=== PATIENT | female | born 1950 | race Caucasian/White ===

== ENCOUNTER 2020-05-08 13:17 | Outpatient (REF) | payer MEDICARE, SELFPAY ==
--- NOTE | ~2020-05-08 | MM_ITS ---
EXAMINATION: MM SCREENING DIGITAL BREAST TOMOSYNTHESIS, BILATERAL CLINICAL INFORMATION: Screening. Asymptomatic. Status post right breast lumpectomy. COMPARISON: Mammography: March 27, 2019 and studies dating back to June 06, 2016 TECHNIQUE: Digital breast tomosynthesis is performed in both the craniocaudal and mediolateral oblique views along with computer-aided detection (CAD). Synthesized 2D images are generated from the tomosynthesis. Additional right exaggerated craniocaudal view performed. FINDINGS: The breasts are heterogeneously dense, which may obscure small masses (ACR BI-RADS breast composition Category c). There is postsurgical change seen from previous lumpectomy of the right breast. No new abnormal dominant mass or suspicious grouping of microcalcifications is seen within either the right or left breast. MM/MM tomosynthesis screening BI IMPRESSION: There are no significant changes from prior study. ASSESSMENT: BI-RADS 2: Benign RECOMMENDATION: Routine annual mammography screening. This patient's information was entered into a reminder system with a target due date for their next mammogram.
== END 2020-05-08 13:18 | disposition home or self-care (01) ==
LOC: HO.MAMMO 13:17
PROVIDERS: PCP Internal Medicine Medical Oncology; Visit Provider Family Medicine
DX: Z12.31 Encounter for screening mammogram for malignant neoplasm of breast (principal)
CPT/HCPCS: 77063; 77067

== ENCOUNTER 2020-07-12 13:22 | Outpatient (REF) | payer MEDICARE, SELFPAY ==
--- NOTE | ~2020-07-12 | MR_ITS ---
EXAMINATION: MR BREAST WITHOUT AND WITH CONTRAST, BILATERAL CLINICAL INFORMATION: 69-year-old with prior history of right breast cancer status post lumpectomy with bilateral breast pain. COMPARISON: Correlation to mammogram of 05/08/2020. TECHNIQUE: Imaging was performed with a dedicated breast coil. Prior to the administration of contrast, bilateral axial T1 and bilateral axial T2 weighted sequences were obtained. After the uneventful administration of?6.5 mL of Gadavist, dynamic contrast-enhanced VIBRANT series through the breasts in the axial plane were performed. Subtracted images were performed and reviewed. A delayed sagittal sequence through both breasts was acquired. Additionally, CAD post-processing, including maximum intensity projections, 3-D reconstructions and kinetic analysis, were performed an independent workstation and reviewed by the interpreting radiologist is a portion of this exam. FINDINGS: The patient's fibroglandular tissue demonstrates scattered fibroglandular density. There is minimal background enhancement. LEFT BREAST: There are scattered foci of enhancement demonstrating subthreshold-type kinetics. There are no areas of mass or non-mass enhancements suspicious of malignancy. There are no secondary signs of malignancy. There are no additional findings on T2-weighted imaging or kinetic curve analysis. RIGHT BREAST: There is architectural distortion in the lateral aspect of the breast from prior lumpectomy. There is no associated enhancement. There are no areas of mass or non-mass enhancement suspicious of malignancy. There are no additional findings on T2-weighted imaging or kinetic curve analysis. There is no suspicious internal mammary chain or axillary adenopathy. Limited views of the chest and abdomen are unremarkable. MR/MR breast BI wo/w con IMPRESSION: 1. Post lumpectomy changes in the right breast. 2. No MRI suspicious findings in either breast. ASSESSMENT: LEFT BREAST: BI-RADS 1, Negative. RIGHT BREAST: BI-RADS 2, benign. RECOMMENDATIONS: Routine mammographic imaging as per most recent study. MRI as per high-risk protocol.
== END 2020-07-12 13:23 | disposition home or self-care (01) ==
LOC: HO.MRI 13:22
PROVIDERS: Visit Provider Internal Medicine Medical Oncology
DX: N64.4 Mastodynia (principal); Z85.3 Personal history of malignant neoplasm of breast
CPT/HCPCS: 77049; A9585

== ENCOUNTER 2020-11-09 15:18 | Outpatient (REF) | payer MEDICARE, SELFPAY | END 2020-11-09 15:19 | disposition home or self-care (01) | LOC: HO.LNP 15:18 | PROVIDERS: Visit Provider Physician Assistant Medical | DX: J02.9 Acute pharyngitis, unspecified (principal); Z20.822 Contact with and (suspected) exposure to COVID-19 | CPT/HCPCS: U0003; U0005 ==

== ENCOUNTER 2020-12-26 12:55 | Outpatient (REF) | payer MEDICARE, SELFPAY ==
--- NOTE | ~2020-12-26 | XR_ITS ---
EXAMINATION: XR CERVICAL SPINE CLINICAL INFORMATION: Torticollis. COMPARISON: None TECHNIQUE: 3 views of the cervical spine were obtained. FINDINGS: There is normal cervical lordosis. The vertebral heights and alignment is normal. There is mild loss of C4-C5 disc height. Rest of the disc heights are maintained. There is moderate left C4-C5 and C5-C6 facet joint hypertrophy. No visible acute fracture or dislocation seen. The prevertebral soft tissues are normal. XR/XR cervical spine 3V IMPRESSION: Moderate left C4-C5 and C5-C6 facet joint hypertrophy and arthropathy. No acute fracture or dislocation seen.
== END 2020-12-26 12:56 | disposition home or self-care (01) ==
LOC: HO.HMGCX 12:55
PROVIDERS: PCP Internal Medicine; Visit Provider Internal Medicine
DX: Z13.89 Encounter for screening for other disorder (principal)
CPT/HCPCS: 72040

== ENCOUNTER 2021-02-18 13:44 | Outpatient (REF) | payer MEDICARE, SELFPAY ==
--- NOTE | ~2021-02-18 | MM_ITS ---
EXAMINATION: BONE DENSITOMETRY CLINICAL INDICATION: Asymptomatic menopausal state. COMPARISON: None (current study represents initial baseline exam). TECHNIQUE: Using a [employer] DXA System (software version: 13.1) manufactured by [employer] system master, dual-energy x-ray absorptiometry was performed of the lumbar spine and left hip. The images are of good technical quality. Summary results are attached. FINDINGS: AP SPINE L1-L4: BMD 0.937 g/cm2, Z-score -0.3, T-score -2.0, osteopenia. LEFT FEMUR, NECK: BMD 0.725 g/cm2, Z-score -0.5, T-score -2.2, osteopenia. LEFT FEMUR, TOTAL: BMD 0.815 g/cm2, Z-score 0.0, T-score -1.5, osteopenia. IDENTIFIED RISK FACTORS: Osteoporosis, height loss, low calcium intake, menopause. HISTORY OF FRACTURE: None listed. MEDICATIONS: Vitamin D. MM/XR DEXA axial skeleton IMPRESSION: 1. DIAGNOSIS: Osteopenia based on the lowest T-score value of -2.2 in the femoral neck applying World Health Organization criteria. 2. 10-YEAR FRACTURE RISK PREDICTION, FRAX: Major osteoporotic fracture (clinical spine, forearm, hip or shoulder) 13.0%. Hip fracture 3.2%. 3. Treatment Recommendations: NOF guidelines recommend consideration for treatment in postmenopausal women and men age 50 and older presenting with the following: -A hip or vertebral (clinical or morphometric) fracture. -T-score less than or equal to -2.5 at the femoral neck or spine after appropriate evaluation to exclude secondary causes. -Low bone mass at the hip or spine and a 10-year fracture probability by FRAX of greater than or equal to 3% for hip fracture or greater than or equal to 20% for major osteoporotic fracture based on the [place] adapted WHO algorithm. 4. Other Recommendations: All treatment decisions require clinical judgment and consideration of individual patient factors, including patient preferences, comorbidities, previous drug use, risk factors not captured in the FRAX model (e.g. frailty, falls, vitamin D deficiency, increased bone turnover, interval significant decline in bone density) and possible under or overestimation of fracture risk by FRAX. Additional medical evaluation for secondary cause of low bone mineral density may be appropriate. FUTURE SCAN RECOMMENDATION: People with diagnosed cases of osteoporosis or at high risk for fracture should have regular bone mineral density tests. For patients eligible for Medicare, routine testing is allowed once every 2 years. The testing frequency can be increased to one year for patients who have rapidly progressing disease, those who are receiving or discontinuing medical therapy to restore bone mass, or have additional risk factors.
== END 2021-02-18 13:45 | disposition home or self-care (01) ==
LOC: HO.MAMMO 13:44
PROVIDERS: Visit Provider Internal Medicine
DX: Z13.820 Encounter for screening for osteoporosis (principal); M85.80 Other specified disorders of bone density and structure, unspecified site; M81.0 Age-related osteoporosis without current pathological fracture; Z78.0 Asymptomatic menopausal state; Z79.899 Other long term (current) drug therapy
CPT/HCPCS: 77080

== ENCOUNTER 2021-06-26 10:20 | Outpatient (REF) | payer MEDICARE, SELFPAY ==
[2021-06-26 11:10] LABS: MANUAL DIFF FLAG NO
[2021-06-26 11:30] LABS: Basophils Percent Auto 0.5 % (0-2); Eosinophils Absolute Auto 0.2 X10*3/uL (0.0-0.4); Hematocrit 40.8 % (37.0-47.0); Hemoglobin 13.6 g/dl (12.0-16.0); Imm Gran Abs Auto 0.02 X10*3/uL (0.00-0.03); Imm Gran Pct Auto 0.4 % (0.0-0.4); Lymphocytes Absolute Auto 1.1 X10*3/uL (1.2-4.9); Lymphocytes Percent Auto 19.3 % (20-40); Mean Corpuscular HGB Conc 33.3 g/dl (31.0-35.0); Mean Platelet Volume 9.8 fL (9.4-12.3); Monocytes Absolute Auto 0.5 X10*3/uL (0.1-1.2); Monocytes Percent Auto 8.6 % (2-11); Neutrophils Absolute Auto 3.9 x10*3/uL (2.0-8.3); Neutrophils Percent Auto 68.2 % (45-73); Platelet Count 304 X10*3/uL (160-400); Red Blood Count 4.12 X10*6/uL (4.20-5.50); Red Cell Distribution Width 13.9 % (11.0-16.0); White Blood Count 5.7 X10*3/uL (4.8-10.8)
[2021-06-26 12:12] LABS: TSH reflex Free T4 2.45 uIU/mL (0.32-4.0); Vitamin D 25-OH Total 45.4 ng/mL (>30)
[2021-06-26 12:39] LABS: Alanine Aminotransferase 21 U/L (0-31); Anion Gap 13 (12-20); Aspartate Amino Transferase 20 U/L (5-31); Blood Urea Nitrogen 11 mg/dL (9-16); Calcium 9.8 mg/dL (8.4-10.2); Carbon Dioxide 28 mmol/L (22-29); Chloride 105 mmol/L (96-108); Cholesterol 231 mg/dL; Estimated Glomerular Filt Rate > 60; Glucose Fasting 102 mg/dL (60-99); HDL Cholesterol 78 mg/dL; LDL Cholesterol Calculated 136 mg/dl; Potassium 4.7 mmol/L (3.3-5.1); Sodium 141 mmol/L (135-145); Triglycerides 86 mg/dL
== END 2021-06-26 10:21 | disposition home or self-care (01) ==
LOC: HO.HMGCLDS 10:20
PROVIDERS: PCP Internal Medicine; Visit Provider Internal Medicine
DX: R42 Dizziness and giddiness (principal); N95.9 Unspecified menopausal and perimenopausal disorder; M85.89 Other specified disorders of bone density and structure, multiple sites; Z78.0 Asymptomatic menopausal state; Z83.49 Family history of other endocrine, nutritional and metabolic diseases
CPT/HCPCS: 36415; 80048; 80061; 82306; 84443; 84450; 84460; 85025

== ENCOUNTER 2021-07-28 11:00 | Outpatient (RCR) | payer MEDICARE, SELFPAY ==
[2021-07-25 11:06] VITALS: BP 110/78
--- NOTE | 2021-07-25 12:06 | MHC.PT.EP ---
[facility] [place] Office [place] Office [place] Office [address] Shelby Mcclure [address] [phone] F: [phone] F: [phone] F: [phone] F: [phone] Physical Therapy Plan of Care Date of Evaluation: Date of Surgery: Diagnosis: vertigo Assessment: 70 y/o F referred to PT with vertigo. Dizziness started 3 weeks ago after trialing a new exercise program. Describes dizziness as room-spinning that last < 1 minute which occurs with looking up to put in eye drops, rolling, and getting OOB. She trialed self-Sasha manuever 07/14 which resulted in n/v. Examination shows normal oculomotor, normal static balance strategies, negative VBI test, and (+) for R PC BPPC in Umbarger-Hallpike position. She was treated x 2 Sasha rolls for R PC BPPV with resolution on second roll (no nystagmus or sx). She did have Tumarkin maneuver occur after completion of first Sasha. At end of session, she left without dizziness or balance impairments. Educated pt on CRM, re-calibration time and expectations, and safety. Recommend PT 2x/week for 4 weeks. Frequency and Duration: The patient will be seen 2x/week for 4 weeks Short Term Goals: 1. Pt will be (-) for nystagmus and reports of vertigo in all diagnostic directions with resolution of BPPV in 4 weeks Halfway Goals: 1. Pt to be able to functionally move in all planes without provocation of dizziness and return to PLOF in 4 weeks 2. Pt to be educated on sx and indications to return to therapy when needed in 3. Eliminate BPPV in order to reduce risk of falls Treatment Plan: Modalities to reduce pain, spasms and effusion. Manual therapy to restore motion and function. Therapeutic exercise to improve strength and flexibility. Neuromuscular re-education for posture and balance. Therapeutic activities to return to functional activities of daily living. Electronically signed by: Tanya Rasheed PT Please sign and return to therapist. Thank you for your referral.
--- NOTE | 2021-09-01 15:04 | MHC.PT.DC ---
[facility] [place] Office [place] Office [place] Office [address] Shelby Mcclure [address] [phone] F: [phone] F: [phone] F: [phone] F: [phone] Physical Therapy Discharge Report Diagnosis: vertigo Date of Surgery: Date of Evaluation: 07/25/21 Date of Discharge: 09/01/21 Treatments to Date: 1 Cancellations to Date: 0 No Shows to Date: 0 Discharge Status: Achieved Goals Discharge Summary: Pt was assessed wth [place]-hallpike and Roll Test and all 6 canals were negative for sx and . Educated pt re recurrence and to call and make an appointment if she has a recurrence of sx in 30days. If she does not have a recurrence, we will close chart in 30 days. Pt in agreement. Electronically signed by: Tanya Rasheed PT Please sign and return to therapist. Thank you for your referral.
== END 2021-09-01 15:05 | disposition home or self-care (01) ==
LOC: HO.PTCHIC 11:00
PROVIDERS: PCP Internal Medicine; Visit Provider Internal Medicine
DX: R42 Dizziness and giddiness (principal)
CPT/HCPCS: 95992; 97161

== ENCOUNTER 2021-08-04 13:35 | Outpatient (REF) | payer MEDICARE, SELFPAY ==
--- NOTE | ~2021-08-04 | MM_ITS ---
EXAMINATION: MM SCREENING BREAST TOMOSYNTHESIS, BILATERAL CLINICAL INFORMATION: Screening. Asymptomatic. The lifetime risk of breast cancer based on the Tyrer-Cuzick Model is 4%. COMPARISON: Mammography: 05/08/2020, 03/27/2019, 07/23/2018, 07/09/2017; MR breasts 07/12/2020 TECHNIQUE: Digital breast tomosynthesis is performed in both the craniocaudal and mediolateral oblique views along with computer-aided detection (CAD). Synthesized 2D images are generated from the tomosynthesis. Additional exaggerated right CC view is provided. FINDINGS: There are scattered areas of fibroglandular density (ACR BI-RADS breast composition Category b). Right breast post therapy changes are similar to prior studies with reduced breast size and stable scarring and surgical clips. Neither breast shows interval mass or architectural abnormality or abnormal calcifications. There are no significant changes. MM/MM tomosynthesis screening BI IMPRESSION: No mammographic evidence of malignancy. Post therapy changes right breast. ASSESSMENT: BI-RADS 2: Benign RECOMMENDATION: Routine annual mammography screening. This patient's information was entered into a reminder system with a target due date for their next mammogram.
== END 2021-08-04 13:36 | disposition home or self-care (01) ==
LOC: HO.MAMMO 13:35
PROVIDERS: PCP Internal Medicine; Visit Provider Internal Medicine
DX: Z12.31 Encounter for screening mammogram for malignant neoplasm of breast (principal)
CPT/HCPCS: 77063; 77067

== ENCOUNTER 2022-02-03 10:04 | Outpatient (REF) | payer MEDICARE, SELFPAY ==
--- NOTE | ~2022-02-03 | PE_ITS ---
EXAMINATION: Fluorine-18 FDG PET/CT Scan CLINICAL INDICATION: Subsequent treatment management. Breast cancer status post radiation therapy 2009. PROCEDURE: 54 minutes following the intravenous administration of 15.2 mCi of fluorine 18 FDG, images from the base of the skull to the mid thighs were obtained using a combined PET/CT scanner with CT scan based attenuation correction. No oral contrast was administered. No intravenous contrast was administered. Transverse, coronal, sagittal, and volume reconstruction projections were obtained. The patient's blood glucose as determined by a finger stick, was 91 mg/dl immediately prior to injection. Total CT exam dose-length product 328.70 mGy-cm * These CT images were obtained using dose optimization techniques as appropriate, variously including the following: Automated exposure control * Adjustment of mA and/or kV according to patient size (this includes techniques or standardized protocols for targeted exams where dose is matched to indication/reason for exam; i.e. extremities or head) * Use of iterative reconstruction technique COMPARISON: No previous PET/CT scan or other tomographic imaging studies are available for comparison. Rest chemotherapy is a cyst dated 08/04/2021 is available for comparison. FINDINGS: (Slice numbers described in this report are numbered superiorly to inferiorly with slice #1 in the head) NECK AND VISUALIZED HEAD: No foci of abnormal FDG activity are noted. The distribution of FDG activity is physiological. There is no cervical lymphadenopathy. THORAX: No foci of abnormal FDG activity are present in the chest. There are postsurgical changes in the right breast with some skin retraction laterally at the 9:00 position with no associated abnormal FDG activity. Multiple right axillary metallic surgical clips are in place with no associated abnormal FDG activity. No pulmonary nodules are visualized. Some minimal scarring or atelectasis is present anterolaterally in the right middle lobe with no associated abnormal FDG activity. There is no mediastinal, supraclavicular, or axillary lymphadenopathy. ABDOMEN AND PELVIS: There are no foci of abnormal FDG activity in the abdomen or pelvis. There is mild diffuse FDG activity throughout the gastrointestinal tract. A focus of more intensely increased FDG activity in the splenic flexure of the large bowel appears to be associated with a diverticulum but otherwise no suspicious CT findings are present. This shows SUVmax 5.1, slice 123/267. All the other activity is likely physiological. There is diverticulosis without evidence of diverticulitis. The hollow viscera are otherwise unremarkable. No additional suspicious foci of abnormal FDG activity are present in the abdomen or pelvis. The liver, gallbladder, spleen comment kidneys, adrenal glands and pancreas appear unremarkable. The pelvic organs are unremarkable. There is no retroperitoneal, mesenteric, pelvic or inguinal lymphadenopathy. MUSCULOSKELETAL: There are no foci of abnormal FDG activity in the osseous structures. There are degenerative changes in the spine but no suspicious sclerotic or lytic lesions are present. VASCULAR: Scattered vascular calcifications are present. PET/PET CT fusion skull to thigh IMPRESSION: 1. Postsurgical changes in the right breast and axilla are noted with no associated abnormal FDG activity. 2. FDG avid focus in the splenic flexure of the large bowel is probably physiological, but because of the focal appearance and malignant lesion at this site cannot be entirely ruled out. Correlation with colonoscopy is recommended. 3. There are no additional abnormalities suspicious for recurrent or metastatic malignancy present.
== END 2022-02-03 10:05 | disposition home or self-care (01) ==
LOC: HO.PET 10:04
PROVIDERS: Visit Provider Internal Medicine Medical Oncology
DX: Z13.89 Encounter for screening for other disorder (principal)

== ENCOUNTER 2022-08-10 09:00 | Outpatient (REF) | payer MEDICARE, SELFPAY ==
[2022-08-10 09:17] LABS: MANUAL DIFF FLAG NO
[2022-08-10 09:26] LABS: Basophils Percent Auto 0.8 % (0-2); Eosinophils Absolute Auto 0.1 X10*3/uL (0.0-0.4); Eosinophils Percent Auto 2.4 % (0-4); Hematocrit 41.1 % (37.0-47.0); Hemoglobin 13.9 g/dl (12.0-16.0); Imm Gran Abs Auto 0.03 X10*3/uL (0.00-0.03); Imm Gran Pct Auto 0.6 % (0.0-0.4); Lymphocytes Percent Auto 19.1 % (20-40); Mean Corpuscular HGB Conc 33.8 g/dl (31.0-35.0); Mean Corpuscular Hemoglobin 31.9 pg (27.0-33.0); Mean Corpuscular Volume 94.3 fL (80.0-98.0); Mean Platelet Volume 9.4 fL (9.4-12.3); Monocytes Absolute Auto 0.5 X10*3/uL (0.1-1.2); Monocytes Percent Auto 9.3 % (2-11); Neutrophils Absolute Auto 3.4 x10*3/uL (2.0-8.3); Neutrophils Percent Auto 67.8 % (45-73); Platelet Count 264 X10*3/uL (160-400); Red Blood Count 4.36 X10*6/uL (4.20-5.50)
[2022-08-10 10:04] LABS: Alanine Aminotransferase 13 U/L (0-31); Albumin Level 4.1 g/dL (3.5-5.0); Alkaline Phosphatase 69 U/L (39-117); Anion Gap 11 (12-20); Aspartate Amino Transferase 15 U/L (5-31); Bilirubin Total 0.5 mg/dL (0.0-1.0); Blood Urea Nitrogen 17 mg/dL (9-16); Calcium 9.8 mg/dL (8.4-10.2); Carbon Dioxide 27 mmol/L (22-29); Chloride 105 mmol/L (96-108); Cholesterol 235 mg/dL; Estimated Glomerular Filt Rate > 60; Glucose Fasting 108 mg/dL (60-99); HDL Cholesterol 71 mg/dL; LDL Cholesterol Calculated 151 mg/dl; Potassium 4.5 mmol/L (3.3-5.1); Sodium 138 mmol/L (135-145); Total Protein 6.5 g/dL (6.5-8.0); Triglycerides 66 mg/dL
[2022-08-11 09:44] LABS: CA 27.29 17 U/mL (<38)
== END 2022-08-10 09:01 | disposition home or self-care (01) ==
LOC: HO.LAB 09:00
PROVIDERS: Visit Provider Internal Medicine Medical Oncology
DX: C50.919 Malignant neoplasm of unspecified site of unspecified female breast (principal); H33.309 Unspecified retinal break, unspecified eye; I70.90 Unspecified atherosclerosis; E55.9 Vitamin D deficiency, unspecified; E78.5 Hyperlipidemia, unspecified; M53.9 Dorsopathy, unspecified
CPT/HCPCS: 36415; 80053; 80061; 85025; 86300

== ENCOUNTER → 2022-09-14 13:45 | Outpatient (BNVA) | payer MEDICARE, SELFPAY | PROVIDERS: PCP Internal Medicine; Visit Provider Physician Assistant | DX: R12 Heartburn (principal) | CPT/HCPCS: 99202 ==

== ENCOUNTER 2022-09-18 10:49 | Outpatient (REF) | payer MEDICARE, SELFPAY ==
--- NOTE | ~2022-09-18 | MM_ITS ---
EXAMINATION: MM SCREENING DIGITAL BREAST TOMOSYNTHESIS, BILATERAL CLINICAL INFORMATION: Screening. Asymptomatic. Family history breast cancer, mother. Personal history right breast cancer status post lumpectomy, 2009. COMPARISON: Mammography: 08/04/2021, 05/08/2020, 03/27/2019, 07/23/2018; PET/CT 02/03/2022. TECHNIQUE: Digital breast tomosynthesis is performed in both the craniocaudal and mediolateral oblique views along with computer-aided detection (CAD). Synthesized 2D images are generated from the tomosynthesis. Additional right MLO view is provided. FINDINGS: There are scattered areas of fibroglandular density (ACR BI-RADS breast composition Category b). There are post therapy changes right breast with decreased breast size, stable scarring, and surgical clips. Neither breast shows interval mass or architectural abnormality or abnormal calcifications. There are fine punctate densities overlying both axilla related to the skin on tomography and consistent with deodorant artifact. No significant changes from prior studies. MM/MM tomosynthesis screening BI IMPRESSION: -No mammographic evidence of malignancy. -Post therapy changes right breast, stable. ASSESSMENT: BI-RADS 2: Benign RECOMMENDATION: Routine annual mammography screening. This patient's information was entered into a reminder system with a target due date for their next mammogram.
== END 2022-09-18 10:50 | disposition home or self-care (01) ==
LOC: HO.MAMMO 10:49
PROVIDERS: PCP Internal Medicine; Visit Provider Internal Medicine
DX: Z12.31 Encounter for screening mammogram for malignant neoplasm of breast (principal)
CPT/HCPCS: 77063; 77067

== ENCOUNTER 2022-11-05 12:42 | Outpatient (AMB) | payer MEDICARE, SELFPAY ==
[2022-11-05 13:07] VITALS: BP 110/64; PULSE 67; O2SAT 99; BMI 23.1
--- NOTE | 2022-11-05 13:07 | A.OFFVIS_ITS ---
Intake Vital Signs 11/05/22 13:07 Height 5 ft 6.5 in Weight 145 lb BMI 23.1 BP 110/64 Blood Pressure Location Lt brachial Position Sitting Pulse 67 Pulse Source Pulse Oximeter Pulse Oximetry (%) 99 Oxygen Delivery Method Room Air Intake Visit Reasons: SHEA G0439 Intake Note: Pt is here today for her SWV Allergies No Known Allergies Allergy (Verified 11/05/22 13:12) Medication List - Last Reconciled 11/05/22 by Jackie Cordon MD antiarthritic combination no.2 (glucosamine-chondroitin) mg PO ascorbic acid (vitamin C) (Vitamin C) 1 g PO DAILY calcium cit mal-vit D2-mag ox 200-200-25 mg-unit-mg 2 tabs PO cholecalciferol (vitamin D3) 2,000 units PO DAILY omeprazole 20 mg PO DAILY 30 days timolol maleate 0.5% 1 drp ophthalmic (eye) ONCE HPI SHEA G0439 HPI Details AWV ? 71 year old with history of right breast cancer followed by Oncology, osteopenia sites, glaucoma, chronic GERD, presents for her ? Annual Wellness Visit, initial visit.? She is up-to-date with her screening mammogram, done September 18 with normal findings, had fasting lipid panel and fasting blood sugar check done 08/10/2022 which showed mildly elevated LDL cholesterol at 151 and fasting blood sugar at 1-0 8 mg/dL. She is up-to-date with her screening colonoscopy done in 2020, to be repeated again after 5 years, sees Dr. Nava for her vision check. She is up-to-date with her COVID vaccination, Shingrix, Tdap and gets yearly flu shots, she had Pneumovax 23 given an 2019 and is due for her Prevnar 20. ? Medical / Social History Reviewed? Past Medical History ?Yes . ? [place] of Care / Care Team list updated ?Yes . ? Surgical/Hospitalization History ?Yes . ? Current Medications (including OTC and supplements) ?Yes . ? Family History ?Yes . ? Tobacco Control form ?Yes . ? AUDIT-C (Alcohol use) form ?Yes . ? Illicit drug use in Social History ?Yes . ? Current diagnosis of depression? ?No ? Appropriate PHQ2/PHQ9 completed ?Yes . ? Data entered by ?[facility] and reviewed by provider ? Fall Risk ? Fall History? Have you had any falls with injury in the past year? ?No . ? Have you had two or more falls in the past year? ?No . ? Fall Risk Assessment: ?No falls in the past year . ? HRA filled out by the patient, reviewed by Provider and scanned. ? AWV ? Balance? Romberg ?Yes . ? Tandem walk ?Yes . ? Walk and Turn ?Yes . ? Rise from sit to stand ?Yes . ?Vision? Corrective lens ?Yes ? Vision screen ? Up-to-date, sees Dr. Nava ?Hearing? Whisper test ?pass . ?Written Plan?Completed. See Patient Documents.? [facility] Medical History Cataract (lens) fragments in eye following cataract surgery, left eye Cataract (lens) fragments in eye following cataract surgery, right eye Chronic GERD Ductal carcinoma in situ (DCIS) of right breast Environmental allergies Family history of diabetes mellitus (DM) Family history of thyroid disease Glaucoma Heartburn Intermittent lightheadedness Osteopenia of multiple sites Post-menopause Surgical History History of lumbar surgery Status post right breast lumpectomy Family History Father Substance use disorder Diabetes mellitus Mother Breast CA, Onset Age: 85 Paternal Grandmother Ovarian cancer Social History Housing: House Alcohol intake: current Alcohol intake frequency: a few times a week Alcohol type: wine Patient Tobacco Use Status: Never used Tobacco e-Cigarette/Vaping Use: Never Used Current occupational status: other 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 Cognitive needs: No Hearing needs: No Vision needs: No Questionnaire Medicare Wellness Checkup [age] What gender do you identify with?: female During the past 4 weeks, how much have you been bothered by emotional problems such as feeling anxious, depressed, irritable, sad or downhearted, and blue?: not at all During the past 4 weeks, has your physical & emotional health limited your social activities with family, friends, neighbors, or groups?: not at all During the past 4 weeks, how much bodily pain have you generally had?: no pain During the past 4 weeks, was someone available to help you if you needed & wanted help?: yes, as much as I wanted During the past 4 weeks, what was the hardest physical activity you could do for at least 2 minutes?: heavy Can you get to places out of walking distance without help? (For eg., can you travel alone on buses, taxis or drive your car?): Yes Can you go shopping for groceries or clothes without someone's help?: Yes Can you prepare your own meals?: Yes Can you do your housework without help?: Yes Because of any health problems, do you need the help of another person with your personal care needs such as eating, bathing, dressing or getting around the house?: No Can you handle your own money without help?: Yes During the past 4 weeks, how would you rate your health in general?: very good During the past 4 weeks how have things been going for you?: very well; could hardly better Are you having difficulties driving your car?: no Do you always fasten your seat belt when you are in a car?: yes, usually During past 4 weeks, have you been bothered by the following: never: Falling or dizzy when standing up, Sexual problems?, Trouble eating well?, Teeth or denture problems?, Problems using the telephone? and Tiredness or fatigue? Have you fallen 2 or more times in the past year?: No Are you afraid of falling?: No Are you a smoker?: no During the past 4 weeks, how many drinks of wine, beer, or other alcoholic beverages did you have?: 6-9 drinks per week Do you exercise for about 20 minutes 3 or more times a week?: yes, all the time Have you been given information to help with the following?: no: Hazards in your house that might hurt you? and no: Keeping track of your medications? How often do you have trouble taking medicines the way you have been told to take them?: I always take medicine as prescribed How confident are you that you can control & manage most of your health problems?: very confident What is your race?: White Mini Mental State Exam (MMSE) Orientation What is the (year) (season) (date) (day) (month)?: year (2022), season (Summer), date (11/05/2022), day () and month (October) Where are we (state) (county) (town or city) (hospital) (floor)?: state ([place]), formerly [facility], [facility] ([place]), town or city ([place]) and hospital/clinic ([facility]) Score Score: 9 Activity of Daily Living Bathing - sponge bath, tub bath or shower: receives no assistance (gets in/out by self, if usual bathing means Dressing - getting clothes from closets & drawers, including inner/outer garments & fasteners.: gets clothes & gets completely dressed without help Toileting - going to the 'toilet room' for urine/bowel elimination & cleaning self/arranging clothes: goes to toilet room, cleans self, arranges clothes without help Transfer: moves in & out of bed and chair without help (may use support object) Continence: controls urination/bowel movements completely by self Feeding: feeds self without help Total Score: 0 Information obtained from: patient Using telephone: independent Traveling: independent Shopping: independent Preparing meals: independent Housework: independent Taking medicine: independent Managing money: independent PHQ-9 Over the last 2 weeks, how often have you been bothered by any of the following problems? 1. Little interest or pleasure in doing things: not at all 2. Feeling down, depressed, or hopeless: not at all 3. Trouble falling or staying asleep, or sleeping too much: not at all 4. Feeling tired or having little energy: not at all 5. Poor appetite or overeating: not at all 6. Feeling bad about yourself - or that you are a failure or have let yourself or your family down: not at all 7. Trouble concentrating on things, such as reading the newspaper or watching television: not at all 8. Moving or speaking so slowly that other people could have noticed. Or the opposite - being so fidgety or restless that you have been moving around a lot more than usual: not at all 9. Thoughts that you would be better off or of hurting yourself in some way: not at all Total score: 0 Depression Screening Interpretation: Negative 06016 - PHQ-9 Billing: Yes Source: Developed by Drs. Jed Clancy, Isis Marinelli, Daniel Garzon and colleagues, with an educational nicole from [employer]. Physical Exam Vital Signs: Last Vital Signs Pulse 67 11/05/22 13:07 BP 110/64 11/05/22 13:07 Pulse Ox 99 11/05/22 13:07 Oxygen Delivery Method Room Air 11/05/22 13:07 BMI result Body Mass Index 23.1 Assessment & Plan Assessment & Plan (1) Encounter for initial annual wellness visit (AWV) in Medicare patient: Code(s): Z00.00 - Encounter for general adult medical examination without abnormal fin dings Plan: Medical wellness checklist reviewed, discussed and updated, copy given to patient. Reminded to get her Prevnar 20, which is unavailable at the clinic at this time, may get it at the pharmacy (2) Osteopenia of multiple sites: Code(s): M85.89 - Other specified disorders of bone density and structure, multiple sites Plan: Continue with regular weight-bearing exercise, taking adequate calcium in dietary sources and vitamin-D 3 supplements. Repeat another bone density scan (3) Heartburn: Code(s): R12 - Heartburn Plan: Currently on omeprazole 20 mg once a day (4) Glaucoma: Code(s): H40.9 - Unspecified glaucoma Plan: Currently followed by Ophthalmology (5) Environmental allergies: Code(s): Z91.09 - Other allergy status, other than to drugs and biological substances Plan: On [id number] levocetirizine taken as needed for nasal congestion (6) Advanced directives, counseling/discussion: Code(s): Z71.89 - Other specified counseling Plan: Initiated the conversation about Advanced Directives. Advanced Directives help patients prepare for current and future decisions about their medical treatment and place of care. Discussed with patient that it is a process where a patients current condition and prognosis are reviewed, their wishes for information regarding their illness are elicited, and likely medical dilemmas are presented and options discussed. MOLST form completed today, patient will be taking the healthcare proxy form home with her to be discussed with her assigned healthcare proxy, will provide a copy as soon as completed. These forms can be amended as needed, reviewed yearly and make changes as needed Orders: Orders XR DEXA axial skeleton 11/05/22 M85.89 - Other specified disorders of bone density and structure, multiple sites Quality Reporting (2019) Depression/Bipolar (159/160/161/177) PHQ-9: Total score: 0 Coding Level of Care Code Medicare First (G0438) Diagnoses Encounter for initial annual wellness visit (AWV) in Medicare patient Z00.00 Osteopenia of multiple sites M85.89 Heartburn R12 Glaucoma H40.9 Environmental allergies Z91.09 Advanced directives, counseling/discussion Z71.89 CPT Codes Advance Care Planning - Time spent: 16-45 minutes ([id number]) Advance Care Planning Advance Care Planning discussion: Completed/Scanned Date of discussion: 11/05/22 Who was present: Patient Forms completed: Health Care Proxy (Patient states that she would like to discuss this 1st with her chosen healthcare proxy and will complete, and provide us a copy once done) and YOHANA Time spent: 16-45 minutes Actual minutes spent: 16
== END 2022-11-05 14:08 | disposition home or self-care (01) ==
PROVIDERS: PCP Internal Medicine; Visit Provider Internal Medicine
DX: Z00.00 Encounter for general adult medical examination without abnormal findings (principal); M85.89 Other specified disorders of bone density and structure, multiple sites; R12 Heartburn; Z91.09 Other allergy status, other than to drugs and biological substances; H40.9 Unspecified glaucoma; Z71.89 Other specified counseling
CPT/HCPCS: 99497; G0438

== ENCOUNTER 2022-12-01 11:51 | Day surgery (SDC) | payer MEDICARE, SELFPAY ==
[2022-11-26 12:54] VITALS: BMI 23.4
--- NOTE | 2022-11-27 13:29 | P.CONAN_ITS ---
Documented by User: Lucretia Stahl NP 11/27/22 13:31 HPI - Anesthesia Eval Consult details Narrative: 71yo F for Upper Endoscopy PMFSH Active Problems Active Problems: All Active Problems (Updated 08/14/22 @ 15:30 by Melani Whitley [facility]) Chronic GERD (Acute) Ingrown toenail of left foot (Acute) Intermittent lightheadedness (Acute) Osteopenia of multiple sites (Acute) Family history of thyroid disease (Acute) Family history of diabetes mellitus (DM) (Acute) Post-menopause (Acute) Heartburn (Acute) Glaucoma (Acute) Environmental allergies (Acute) Past Medical History Medical History Cataract (lens) fragments in eye following cataract surgery, left eye Cataract (lens) fragments in eye following cataract surgery, right eye Chronic GERD Ductal carcinoma in situ (DCIS) of right breast Environmental allergies Family history of diabetes mellitus (DM) Family history of thyroid disease Glaucoma Heartburn Intermittent lightheadedness Osteopenia of multiple sites Post-menopause Family History Family History Father Substance use disorder Diabetes mellitus Mother Breast CA, Onset Age: 85 Paternal Grandmother Ovarian cancer Surgical History Surgical History History of lumbar surgery Status post right breast lumpectomy Social History Social History Housing: House Alcohol intake: current Alcohol intake frequency: a few times a week Alcohol type: wine Patient Tobacco Use Status: Never used Tobacco e-Cigarette/Vaping Use: Never Used Are you DNR?: No Advance Directives: No Advance Directives Information Provided: Yes Nutrition Risks: No Nutritional Risk Current occupational status: other 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 Cognitive needs: No Hearing needs: No Vision needs: No Meds Allergies Allergy/AdvReac Type Severity Reaction Status Date / Time No Known Allergies Allergy Verified 12/01/22 12:08 Home Medications Medication Instructions Recorded Confirmed Last Taken Type timolol maleate 0.5 % eye drops 1 drp ophthalmic (eye) ONCE 12/26/20 12/01/22 Unknown History antiarthritic combination no.2 900 mg PO 06/26/21 09/14/22 Unknown History mg tablet (glucosamine-chondroitin) cholecalciferol (vitamin D3) 25 2,000 unit PO DAILY 06/26/21 12/01/22 Unknown History mcg (1,000 unit) capsule ascorbic acid (vitamin C) 1,000 mg 1 g PO DAILY 06/27/21 12/01/22 Unknown History tablet (Vitamin C) calcium citrate mal.-vit 2 tab PO 06/27/21 09/14/22 Unknown History D2-magnesium ox 200 mg-200 unit-25 mg tablet Exam Exam Date and Time: November 27, 2022 1329 Height,Weight and Vital Signs: Height 5 ft 6 in Weight 65.771 kg Pertinent Lab Results Pertinent Lab Results: Laboratory Tests 08/10/22 08/10/22 09:16 09:16 WBC 5.0 Hgb 13.9 Hct 41.1 Plt Count 264 Sodium 138 Potassium 4.5 Chloride 105 Carbon Dioxide 27 BUN 17 H Creatinine 0.84 Assessment and Plan Assessment Anesthesia Assessment: Chart Reviewed Documented by User: Letty Larsen MD 12/01/22 13:10 PMFSH Active Problems Active Problems: All Active Problems (Updated 12/01/22 @ 12:30 by Letty Larsen MD) Chronic GERD (Acute) Ingrown toenail of left foot (Acute) Intermittent lightheadedness (Acute) Osteopenia of multiple sites (Acute) Heartburn (Acute) Glaucoma (Acute) Environmental allergies (Acute) Past Medical History Medical History Cataract (lens) fragments in eye following cataract surgery, left eye Cataract (lens) fragments in eye following cataract surgery, right eye Chronic GERD Ductal carcinoma in situ (DCIS) of right breast Environmental allergies Family history of diabetes mellitus (DM) Family history of thyroid disease Glaucoma Heartburn Intermittent lightheadedness Osteopenia of multiple sites Post-menopause Family History Family History Father Substance use disorder Diabetes mellitus Mother Breast CA, Onset Age: 85 Paternal Grandmother Ovarian cancer Family history of problems with anesthesia: No Surgical History Surgical History History of lumbar surgery Status post right breast lumpectomy History of Problems with Anesthesia: Yes (PONV with breast lumpectomy) Social History Social History Housing: House Alcohol intake: current Alcohol intake frequency: a few times a week Alcohol type: wine Patient Tobacco Use Status: Never used Tobacco e-Cigarette/Vaping Use: Never Used Are you DNR?: No Advance Directives: No Advance Directives Information Provided: Yes Nutrition Risks: No Nutritional Risk Current occupational status: other 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 Cognitive needs: No Hearing needs: No Vision needs: No Meds Allergies Allergy/AdvReac Type Severity Reaction Status Date / Time No Known Allergies Allergy Verified 12/01/22 12:08 Home Medications Medication Instructions Recorded Confirmed Last Taken Type timolol maleate 0.5 % eye drops 1 drp ophthalmic (eye) ONCE 12/26/20 12/01/22 Unknown History antiarthritic combination no.2 900 mg PO 06/26/21 09/14/22 Unknown History mg tablet (glucosamine-chondroitin) cholecalciferol (vitamin D3) 25 2,000 unit PO DAILY 06/26/21 12/01/22 Unknown History mcg (1,000 unit) capsule ascorbic acid (vitamin C) 1,000 mg 1 g PO DAILY 06/27/21 12/01/22 Unknown History tablet (Vitamin C) calcium citrate mal.-vit 2 tab PO 06/27/21 09/14/22 Unknown History D2-magnesium ox 200 mg-200 unit-25 mg tablet Exam Height,Weight and Vital Signs: Height 5 ft 6 in Weight 65.771 kg Vital Signs Temp Pulse Resp BP Pulse Ox O2 Del Method 12/01/22 12:21 97.9 F 68 18 145/83 H 98 Room Air Airway Mallampati Class: I TM Dist: >3cm Neck ROM: Full Loose/Missing/Broken Teeth: No (Denies broken, loose, missing teeth) Heart: RRR Lungs: CTAB Assessment and Plan Assessment Anesthesia Assessment: Anesthesia Plan Discussed Final Anesthetic Review Family History of Problems with Anesthesia: No History of Problems with Anesthesia: Yes (PONV with breast lumpectomy) NPO: Yes ASA Class: II Final Preanesthetic Review: No Changes in Pt Med Stat, Meds/Allgs Chart Reviewed, Consent Obtained/Reviewed and Anes Risks/Benef Reviewed Patient Risk: Low Procedure Risk: Low Assessment/Block/Sedation in SS: Assess/Block/Sedation-SS Anesthetic Plan Anesthetic Plan: MAC: Disposition: Standard PACU
[2022-12-01] MEDS: Lactated Ringers 1,000 ML 100 ML IVCONT (12:11)
[2022-12-01 12:21] VITALS: BP 145/83; PULSE 68; RESP 18; TEMP 36.6; O2SAT 98
--- NOTE | 2022-12-01 12:22 | MHC.SHP ---
Pre-Procedural Eval Section A Date of Service: 12/01/22 Section B Chief Complaint: reflux disease Relevant Family History (Specify if Yes): No Relevant Social History: None Present Medications: see Short Stay Collaborative assessment Medical History: Significant History (Cataract (lens) fragments in eye following cataract surgery, left eye Cataract (lens) fragments in eye following cataract surgery, right eye Chronic GERD Ductal carcinoma in situ (DCIS) of right breast Environmental allergies Family history of diabetes mellitus (DM) Family history of thyroid disease) History of Previous Operations: Relevant previous surgery/procedure and date(s) (History of lumbar surgery Status post right breast lumpectomy) Allergies: Allergies Allergy/AdvReac Type Severity Reaction Status Date / Time No Known Allergies Allergy Verified 12/01/22 12:08 Review of Systems Sugical H&P ROS: Negative: Constitution, Cardiovascular, Respiratory, Neurological, Psychiatric, Hem-Onc, Allergic/Immunologic, Gastrointestinal, Genitourinary, Musculoskeletal, Integumentary, Endocrine and Eyes/Ears/Nose/Throat Exam Surgical H&P Exam: Normal: HEENT, Normal: Heart, Normal: Lungs, Normal: Extremities, Normal: Abdomen, Normal: Skin and Normal: Neurological Plan Diagnosis/Plan: Unchanged I have reviewed the history and physical and performed a pertinent physical examination on my patient. No changes have occurred unless specified. Time Spent With Patient Time: Total time managing care of this patient today ____ minutes.
--- NOTE | 2022-12-01 13:08 | W.PM.OPN ---
Operative Note Operative Note Date of Service: 12/01/22 Narrative: Procedure Description: EGD Indication: GERD Anesthesia: MAC FLEXIBLE TRANSORAL UPPER GASTROINTESTINAL ENDOSCOPY UPPER ENDOSCOPY Consent: Indications for the procedure and potential complications of bleeding, perforation, reaction to medications and missed diagnosis were discussed with the patient and informed consent was obtained. Instrument: Olympus GIF H 190 J mid size upper endoscope Monitoring: Vital signs and clinical assessment, continuous EKG monitoring, Pulse oximetry, Carbon Dioxide monitoring and blood pressure monitoring were done throughout the procedure. Procedure: The patient was placed in the left lateral decubitis position and pre-procedure medications were administered and a bite block was placed. The endoscope was inserted into the mouth and advanced under direct vision to the third part of duodenum. A careful inspection was made as the upper endoscope was withdrawn including a retroflexed examination of the proximal stomach; Findings and interventions are described below. Findings: Larynx:normal Esophagus: GE junction at 35 cm, diaphragm hiatus at 37cm, few tongues and islands of salmon pink tissue consistent with short segment barretts, bx taken. 2 cm sliding hiatal hernia noted. Stomach: Patchy streaky gastric erythema. Biopsies were obtained. Grade 2 flap valve on retroflexed examination of the cardia. 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
[2022-12-01 13:55] VITALS: BP 119/54; PULSE 72; RESP 16; TEMP 36.1; O2SAT 98
[2022-12-01 14:10] VITALS: BP 145/68; PULSE 64; RESP 16; TEMP 36.1; O2SAT 99
== END 2022-12-01 14:45 | disposition home or self-care (01) ==
PROVIDERS: PCP Internal Medicine; Visit Provider Internal Medicine Gastroenterology
PROC: 0DJ08ZZ Inspection of Upper Intestinal Tract, Via Natural or Artificial Opening Endoscopic (ICD-10-PCS; CPT 43235; principal; 2022-12-01 13:30)
DX: K29.60 Other gastritis without bleeding (principal); K44.9 Diaphragmatic hernia without obstruction or gangrene; K21.9 Gastro-esophageal reflux disease without esophagitis; Z79.899 Other long term (current) drug therapy
CPT/HCPCS: 43239; 88305; 88342

== ENCOUNTER → 2022-12-01 11:51 | Outpatient (BNV) | payer MEDICARE, SELFPAY | PROVIDERS: PCP Internal Medicine; Visit Provider Internal Medicine Gastroenterology | DX: K29.70 Gastritis, unspecified, without bleeding (principal); K44.9 Diaphragmatic hernia without obstruction or gangrene | CPT/HCPCS: 43239 ==

== ENCOUNTER 2022-12-16 09:29 | Outpatient (AMB) | payer MEDICARE, SELFPAY ==
--- NOTE | 2022-12-16 09:36 | A.OFFVIS_ITS ---
Intake Vital Signs 12/16/22 09:41 Height 5 ft 6 in Weight 141 lb 4 oz BMI 22.8 BP 101/49 L Blood Pressure Location Lt brachial Position Sitting Pulse 71 Intake Visit Reasons: S/p egd- [facility] Intake Note: Patient follow up for EGD results. Patient cc: sore throat on and off. Denies any other GI issues. 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 Cuturel with good response Last colonoscopy 3-4 years ago at another facility No complaints of abdominal pain, nausea, vomiting, hematemesis, hematochezia, fever or chills PFSH Medical History Cataract (lens) fragments in eye following cataract surgery, right eye Cataract (lens) fragments in eye following cataract surgery, left eye Chronic GERD Intermittent lightheadedness Osteopenia of multiple sites Family history of thyroid disease Family history of diabetes mellitus (DM) Post-menopause Heartburn Glaucoma Environmental allergies Ductal carcinoma in situ (DCIS) of right breast Surgical History Hx of colonoscopy History of lumbar surgery Status post right breast lumpectomy Family History Father Substance use disorder Diabetes mellitus Mother Breast CA, Onset Age: 85 Paternal Grandmother Ovarian cancer Social History Housing: House Alcohol intake: current Alcohol intake frequency: a few times a week Alcohol type: wine Patient Tobacco Use Status: Never used Tobacco e-Cigarette/Vaping Use: Never Used Current occupational status: other 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 Cognitive needs: No Hearing needs: No Vision needs: No Physical Exam Vital Signs: Last Vital Signs Pulse 71 12/16/22 09:41 BP 101/49 L 12/16/22 09:41 BMI result Body Mass Index 22.8 Const General: cooperative, healthy appearing, comfortable and well groomed Orientation/consciousness: patient oriented x3 Limitations: no limitations Eyes Sclerae: sclerae normal Resp Effort & Inspection: normal respiratory effort and able to speak in complete sentences Auscultation: clear to auscultation bilaterally, no rales, no rhonchi and no wheezes Cardio Rate: regular rate Rhythm: regular rhythm Heart sounds: S1 normal heart sound present and S2 normal heart sound present GI Palpation (GI): Soft to palpation and nontender Auscultation: normal bowel sounds Skin General skin exam: no rashes or lesions noted Neuro General: patient oriented x3 Extrem General: Yes full ROM Psych Appearance: grossly normal and well kempt Mental Status: mental status grossly normal Speech and movement: Normal speech and movement present and Clear speech present Affect: normal affect Attitude: cooperative Thought process: Normal thought process present Insight: Good insight present (Psych) Results Reviewed Results Reviewed: mpression/Findings: 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 Stomach, biopsy: Antral-type and oxyntic mucosa with moderate chronic inactive inflammation; no Helicobacter organisms seen. B. GE junction biopsy: - Cardiofundic-type mucosa with moderate chronic inactive inflammation; no intestinal metaplasia seen. - Active esophagitis (maximum eosinophil count 3 per high powered field). C. Esophagus, distal, biopsy: Squamous epithelium within normal limits; no inflammation seen. D. Esophagus, proximal, biopsy: Squamous epithelium within normal limits; no inflammation seen. Clinical History Pre-Op Dx: Reflux Post-Op Dx: Possible Walton's, hiatal hernia, gastritis Microscopic Description A-D. Microscopic sections reviewed. Immunostain for H. pylori is non-reactive (A). Material Received A. Bx stomach B. Bx GE junction (r/o Walton's esophagus) C. Bx distal esophagus D. Bx proximal esophagus Gross Description Received in 4 parts. Part A: Received in formalin labeled ?bx stomach? are 3 glistening, semitranslucent, soft, mckeon irregular tissue fragments each measuring 0.2 cm in greatest dimension which are submitted in toto in a single cassette labeled A. Part B: Received in formalin labeled ?bx GE junction? are 3 glistening, semit ranslucent, soft, hyperemic, mckeon-pink irregular tissue fragments ranging from 0.15 to 0.3 cm in greatest dimension which are submitted in toto in a single cassette labeled B. Part C: Received in formalin labeled ?bx distal esophagus? are 4 glistening, semitranslucent, pale, dickens- Patient: Carlita Hernandez Age/Sex: 71/F MR#: [id number] Page 1 of 2 PET/PET CT fusion skull to thigh IMPRESSION: 1. Postsurgical changes in the right breast and axilla are noted with no associated abnormal FDG activity. 2. FDG avid focus in the splenic flexure of the large bowel is probably physiological, but because of the focal appearance and malignant lesion at this site cannot be entirely ruled out. Correlation with colonoscopy is recommended. 3. There are no additional abnormalities suspicious for recurrent or metastatic malignancy present. Assessment & Plan Assessment & Plan (1) Abnormal PET scan of colon: Code(s): R94.8 - Abnormal results of function studies of other organs and systems Plan: Diagnostic colonoscopy Plan DX-Colonoscopy Dr. 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 238 grams PO ONCE 1 day PRN 238 grams 0RF laxative effect bisacodyl (Dulcolax (bisacodyl)) Take 4 tablets by mouth at 12:00pm the day before your procedure. 20 mg (4 x 5 mg) PO ONCE 1 day 4 tabs 0RF colonoscopy prep Z12.11 - Encounter for screening for malignant neoplasm of colon Patient Instructions: Very pleasant 71-year-old female follows up after recent EGD reviewed procedure report, pathology as well recommendations She has no GI complaints. Acid reflux well controlled Reviewed PET scan results-as well as recommendations colonoscopy to correlate with findings Will schedule diagnostic colonoscopy with Dr. Sterling, MiraLax Gatorade prep. Encouraged to call with any questions or concerns. We appreciate the opportunity assist in care this pleasant patient Coding Level of Care Code Est Pt Level 3 (93558) Diagnoses Abnormal PET scan of colon R94.8 Time Spent (min) 30
[2022-12-16 09:41] VITALS: BP 101/49; PULSE 71; BMI 22.8
== END 2022-12-16 10:34 | disposition home or self-care (01) ==
PROVIDERS: PCP Internal Medicine; Visit Provider Physician Assistant
DX: R94.8 Abnormal results of function studies of other organs and systems (principal)
CPT/HCPCS: 99213

== ENCOUNTER → 2022-12-16 09:29 | Outpatient (BNVA) | payer MEDICARE, SELFPAY | PROVIDERS: PCP Internal Medicine; Visit Provider Physician Assistant | DX: R94.8 Abnormal results of function studies of other organs and systems (principal) | CPT/HCPCS: 99212 ==

== ENCOUNTER 2023-02-03 12:44 | Day surgery (SDC) | payer MEDICARE, SELFPAY ==
[2023-02-01 14:28] VITALS: BMI 22.8
--- NOTE | 2023-02-02 12:31 | P.CONAN_ITS ---
Documented by User: Lucretia Stahl NP 02/02/23 12:32 HPI - Anesthesia Eval Consult details Narrative: 72yo F for Colonoscopy PMFSH Active Problems Active Problems: All Active Problems (Updated 12/16/22 @ 10:07 by Jaimee Powell PA-C) Abnormal PET scan of colon (Acute) Chronic GERD (Acute) Ingrown toenail of left foot (Acute) Intermittent lightheadedness (Acute) Osteopenia of multiple sites (Acute) Family history of thyroid disease (Acute) Family history of diabetes mellitus (DM) (Acute) Post-menopause (Acute) Heartburn (Acute) Glaucoma (Acute) Environmental allergies (Acute) Past Medical History Medical History Cataract (lens) fragments in eye following cataract surgery, right eye Cataract (lens) fragments in eye following cataract surgery, left eye Chronic GERD Intermittent lightheadedness Osteopenia of multiple sites Family history of thyroid disease Family history of diabetes mellitus (DM) Post-menopause Heartburn Glaucoma Environmental allergies Ductal carcinoma in situ (DCIS) of right breast Family History Family History Father Substance use disorder Diabetes mellitus Mother Breast CA, Onset Age: 85 Paternal Grandmother Ovarian cancer Family history of problems with anesthesia: No Surgical History Surgical History History of esophagogastroduodenoscopy (EGD) Hx of colonoscopy History of lumbar surgery Status post right breast lumpectomy History of Problems with Anesthesia: Yes (PONV with breast lumpectomy) Social History Housing: House Alcohol intake: current Alcohol intake frequency: 0-2 drinks per day Alcohol type: wine Patient Tobacco Use Status: Never used Tobacco e-Cigarette/Vaping Use: Never Used Current occupational status: other 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 Cognitive needs: No Hearing needs: No Vision needs: No Meds Allergies Allergy/AdvReac Type Severity Reaction Status Date / Time No Known Allergies Allergy Verified 02/11/23 11:32 Home Medications Medication Instructions Recorded Confirmed Last Taken Type timolol maleate 0.5 % eye drops 1 drp ophthalmic (eye) ONCE 12/26/20 12/01/22 Unknown History antiarthritic combination no.2 900 mg PO 06/26/21 09/14/22 Unknown History mg tablet (glucosamine-chondroitin) cholecalciferol (vitamin D3) 25 2,000 unit PO DAILY 06/26/21 12/01/22 Unknown History mcg (1,000 unit) capsule ascorbic acid (vitamin C) 1,000 mg 1 g PO DAILY 06/27/21 12/01/22 Unknown History tablet (Vitamin C) calcium citrate mal.-vit 2 tab PO 06/27/21 09/14/22 Unknown History D2-magnesium ox 200 mg-200 unit-25 mg tablet Exam Exam Date and Time: February 02, 2023 1231 Height,Weight and Vital Signs: Height 5 ft 6 in Weight 64.07 kg Pertinent Lab Results Pertinent Lab Results: Laboratory Tests 08/10/22 09:16 WBC 5.0 Hgb 13.9 Hct 41.1 Plt Count 264 Sodium 138 Potassium 4.5 Chloride 105 Carbon Dioxide 27 BUN 17 H Creatinine 0.84 Assessment and Plan Assessment Anesthesia Assessment: Chart Reviewed Final Anesthetic Review Family History of Problems with Anesthesia: No History of Problems with Anesthesia: Yes (PONV with breast lumpectomy) Documented by User: Ryan Vega MD 02/18/23 17:50 [facility] Past Medical History Medical History Cataract (lens) fragments in eye following cataract surgery, right eye Cataract (lens) fragments in eye following cataract surgery, left eye Chronic GERD Intermittent lightheadedness Osteopenia of multiple sites Family history of thyroid disease Family history of diabetes mellitus (DM) Post-menopause Heartburn Glaucoma Environmental allergies Ductal carcinoma in situ (DCIS) of right breast Functional capacity: independent ambulation Family History Family History Father Substance use disorder Diabetes mellitus Mother Breast CA, Onset Age: 85 Paternal Grandmother Ovarian cancer Surgical History Surgical History History of esophagogastroduodenoscopy (EGD) Hx of colonoscopy History of lumbar surgery Status post right breast lumpectomy Social History Housing: House Alcohol intake: current Alcohol intake frequency: 0-2 drinks per day Alcohol type: wine Patient Tobacco Use Status: Never used Tobacco e-Cigarette/Vaping Use: Never Used Current occupational status: other 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 Cognitive needs: No Hearing needs: No Vision needs: No Meds Allergies Allergy/AdvReac Type Severity Reaction Status Date / Time No Known Allergies Allergy Verified 02/11/23 11:32 Home Medications Medication Instructions Recorded Confirmed Last Taken Type timolol maleate 0.5 % eye drops 1 drp ophthalmic (eye) ONCE 12/26/20 12/01/22 Unknown History antiarthritic combination no.2 900 mg PO 06/26/21 09/14/22 Unknown History mg tablet (glucosamine-chondroitin) cholecalciferol (vitamin D3) 25 2,000 unit PO DAILY 06/26/21 12/01/22 Unknown History mcg (1,000 unit) capsule ascorbic acid (vitamin C) 1,000 mg 1 g PO DAILY 06/27/21 12/01/22 Unknown History tablet (Vitamin C) calcium citrate mal.-vit 2 tab PO 06/27/21 09/14/22 Unknown History D2-magnesium ox 200 mg-200 unit-25 mg tablet Exam Airway Mallampati Class: III Loose/Missing/Broken Teeth: Yes Assessment and Plan Assessment Anesthesia Assessment: Anesthesia Plan Discussed Final Anesthetic Review NPO: Yes ASA Class: III Final Preanesthetic Review: Meds/Allgs Chart Reviewed, Consent Obtained/Reviewed and Anes Risks/Benef Reviewed Patient Risk: Intermediate Procedure Risk: Intermediate Anesthetic Plan Anesthetic Plan: MAC: and Agree w/ Assess. and Plan Disposition: Standard PACU
[2023-02-03 12:56] VITALS: BMI 22.4
--- NOTE | 2023-02-03 13:18 | MHC.SHP ---
Pre-Procedural Eval Section A Date of Service: 02/03/23 Section B Chief Complaint: Abnormal results of function studies of other orga Relevant Family History (Specify if Yes): No Relevant Social History: None Present Medications: see Short Stay Collaborative assessment Medical History: Significant History (Cataract (lens) fragments in eye following cataract surgery, right eye Cataract (lens) fragments in eye following cataract surgery, left eye Chronic GERD Intermittent lightheadedness Osteopenia of multiple sites Family history of thyroid disease Family history of diabetes mellitus (DM) Post-menopaus) History of Previous Operations: Relevant previous surgery/procedure and date(s) (lumpectomy, EGD) Allergies: Allergies Allergy/AdvReac Type Severity Reaction Status Date / Time No Known Allergies Allergy Verified 02/03/23 13:03 Review of Systems Sugical H&P ROS: Negative: Constitution, Cardiovascular, Respiratory, Neurological, Psychiatric, Hem-Onc, Allergic/Immunologic, Gastrointestinal, Genitourinary, Musculoskeletal, Integumentary, Endocrine and Eyes/Ears/Nose/Throat Exam Surgical H&P Exam: Normal: HEENT, Normal: Heart, Normal: Lungs, Normal: Extremities, Normal: Abdomen, Normal: Skin and Normal: Neurological Plan Diagnosis/Plan: Unchanged I have reviewed the history and physical and performed a pertinent physical examination on my patient. No changes have occurred unless specified. Time Spent With Patient Time: Total time managing care of this patient today ____ minutes.
[2023-02-03 13:29] VITALS: BP 120/59; PULSE 67; RESP 16; TEMP 35.8; O2SAT 97
[2023-02-03] MEDS: Lactated Ringers 1,000 ML 100 ML IVCONT (13:31)
--- NOTE | 2023-02-03 14:39 | P.OP_ITS ---
Operative Note Operative Note Date of Service: 02/03/23 Narrative: Operative Information Procedure Description: Colonoscopy Indication: abn PET scan of colon Anesthesia: MAC COLONOSCOPY Instrument: Olympus variable stiffness pediatric scope 190L Colonoscopy Monitoring: Vital signs and clinical assessment, continuous EKG monitoring, Pulse oximetry, Carbon Dioxide monitoring and blood pressure monitoring were done throughout the procedure. Colon withdrawal time was 7 minutes. Procedure: The patient was placed in the left lateral decubitis position and pre-procedure medications were administered. After a digital rectal examination of the ano-rectum, the video colonoscope was inserted into the rectum and advanced through the colon to the cecum/TI. The colonoscope was slowly withdrawn in a retrograde panoramic fashion and the colon mucosa was carefully examined including a retroflexed view of the rectum. Findings and interventions are described below. Procedure Difficulty: easy Findings: Terminal Ileum-normal Cecum:normal Ascending Colon: normal Transverse Colon -normal Descending Colon:normal Sigmoid Colon: mild diverticulosis noted Rectum: Retroflexion with small internal hemorrhoids, grade I Anorectum - normal Colon preparation: [place] Bowel Preparation Scale Right colon; 2 Transverse colon: 3 Left colon; 3 (0 = Unprepared colon segment with mucosa not seen due to solid stool that cannot be cleared. 1 = Portion of mucosa of the colon segment seen, but other areas of the colon segment not well seen due to staining, residual stool and/or opaque liquid. 2 = Minor amount of residual staining, small fragments of stool and/or opaque liquid, but mucosa of colon segment seen well. 3 = Entire mucosa of colon segment seen well with no residual staining, small fragments of stool or opaque liquid) Impression and Post Procedure Diagnosis: internal hemorrhoids diverticular disease Plan: High fiber diet leaflet Avoid straining at stool, epsom salts and sitz bath, anusol supps or cream Repeat Colonoscopy in 10 years or earlier if clinically indicated no masses or abnormal tissue noted Above findings were reviewed with the patient and relevant handouts were provided if indicated.
[2023-02-03 14:45] VITALS: BP 123/56; PULSE 67; RESP 16; TEMP 36.9; O2SAT 98
[2023-02-03 15:00] VITALS: BP 132/75; PULSE 60; RESP 16; TEMP 36.1; O2SAT 99
== END 2023-02-03 15:27 | disposition home or self-care (01) ==
PROVIDERS: PCP Internal Medicine; Visit Provider Internal Medicine Gastroenterology
PROC: 0DJD8ZZ Inspection of Lower Intestinal Tract, Via Natural or Artificial Opening Endoscopic (ICD-10-PCS; CPT 45378; principal; 2023-02-03 15:20)
DX: R93.3 Abnormal findings on diagnostic imaging of other parts of digestive tract (principal); K57.30 Diverticulosis of large intestine without perforation or abscess without bleeding; K64.0 First degree hemorrhoids; K21.9 Gastro-esophageal reflux disease without esophagitis; M85.89 Other specified disorders of bone density and structure, multiple sites; R42 Dizziness and giddiness; H40.9 Unspecified glaucoma; Z79.899 Other long term (current) drug therapy; Z85.3 Personal history of malignant neoplasm of breast; Z98.890 Other specified postprocedural states
CPT/HCPCS: 45378

== ENCOUNTER → 2023-02-03 12:44 | Outpatient (BNV) | payer MEDICARE, SELFPAY | PROVIDERS: PCP Internal Medicine; Visit Provider Internal Medicine Gastroenterology | DX: R93.3 Abnormal findings on diagnostic imaging of other parts of digestive tract (principal); K57.30 Diverticulosis of large intestine without perforation or abscess without bleeding; K64.0 First degree hemorrhoids | CPT/HCPCS: G0121 ==

== ENCOUNTER 2023-02-11 11:26 | Outpatient (AMB) | payer MEDICARE, SELFPAY ==
[2023-02-11 11:30] VITALS: BP 123/64; PULSE 66; BMI 23.6
--- NOTE | 2023-02-11 11:30 | MHC.OFFVIS ---
Intake Vital Signs 02/11/23 11:30 Height 5 ft 6 in Weight 145 lb 15.136 oz BMI 23.6 BP 123/64 Blood Pressure Location Lt brachial Position Sitting Pulse 66 Pulse Source Pulse Oximeter Intake Visit Reasons: s/p colon [facility] Intake Note: Pt presents to the office today for a s/p colonoscopy. Pt states she is feeling well and denies any GI issues at this time. Allergies No Known Allergies Allergy (Verified 02/11/23 11:32) HPI HPI Comments History of Present Illness Details A very pleasant 72 y/o female F/U after colonoscopy- due to abnormal PET- she was extremely anxious about results She has no GI complaints She is very active she walks several miles a day Appetite is good Bowels are normal Reviewed procedure report, pathology in recommendations-in she is very happy about results No nausea, vomiting, hematemesis, hematochezia fever chills PFSH Medical History Cataract (lens) fragments in eye following cataract surgery, right eye Cataract (lens) fragments in eye following cataract surgery, left eye Chronic GERD Intermittent lightheadedness Osteopenia of multiple sites Family history of thyroid disease Family history of diabetes mellitus (DM) Post-menopause Heartburn Glaucoma Environmental allergies Ductal carcinoma in situ (DCIS) of right breast Surgical History History of esophagogastroduodenoscopy (EGD) Hx of colonoscopy History of lumbar surgery Status post right breast lumpectomy Family History Father Substance use disorder Diabetes mellitus Mother Breast CA, Onset Age: 85 Paternal Grandmother Ovarian cancer Social History Housing: House Alcohol intake: current Alcohol intake frequency: 0-2 drinks per day Alcohol type: wine Patient Tobacco Use Status: Never used Tobacco e-Cigarette/Vaping Use: Never Used Current occupational status: other 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 Cognitive needs: No Hearing needs: No Vision needs: No Review of Systems Const All systems reviewed & are unremarkable except as noted in HPI and below Physical Exam Vital Signs: Last Vital Signs Pulse 66 02/11/23 11:30 BP 123/64 02/11/23 11:30 BMI result Body Mass Index 23.6 Const General: cooperative, healthy appearing, comfortable, no acute distress, well developed and well groomed Orientation/consciousness: patient oriented x3 Limitations: no limitations Eyes Sclerae: sclerae normal Resp Effort & Inspection: normal respiratory effort and able to speak in complete sentences Neuro General: patient oriented x3 Extrem General: Yes full ROM Psych Appearance: grossly normal and well kempt Mental Status: mental status grossly normal Speech and movement: Normal speech and movement present and Clear speech present Affect: normal affect Attitude: cooperative Thought process: Normal thought process present Thought content: Normal thought content present Insight: Good insight present (Psych) Results Reviewed Results Reviewed: Impression and Post Procedure Diagnosis: internal hemorrhoids diverticular disease Plan: High fiber diet leaflet Avoid straining at stool, epsom salts and sitz bath, anusol supps or cream Repeat Colonoscopy in 10 years or earlier if clinically indicated no masses or abnormal tissue noted Assessment & Plan Assessment & Plan (1) Abnormal PET scan of colon: Comment: pet scan, recommend colonoscopy -procedure report reviewed-very happy about results Code(s): R94.8 - Abnormal results of function studies of other organs and systems Plan: Repeat colonoscopy 10 years sooner if indicated (2) Chronic GERD: Code(s): K21.9 - Gastro-esophageal reflux disease without esophagitis Plan: Continue omeprazole 20 mg daily avoid culprits Patient Instructions: Repeat asymptomatic colonoscopy 10 years continue omeprazole 20 mg daily avoid culprits I can see that she says she recommends locking and locking Coding Level of Care Code Est Pt Level 3 (47437) Diagnoses Abnormal PET scan of colon R94.8 Chronic GERD K21.9 Time Spent (min) 25
== END 2023-02-11 12:07 | disposition home or self-care (01) ==
PROVIDERS: PCP Internal Medicine; Visit Provider Physician Assistant
DX: R94.8 Abnormal results of function studies of other organs and systems (principal); K21.9 Gastro-esophageal reflux disease without esophagitis
CPT/HCPCS: 99213

== ENCOUNTER → 2023-02-11 11:26 | Outpatient (BNVA) | payer MEDICARE, SELFPAY | PROVIDERS: PCP Internal Medicine; Visit Provider Physician Assistant | DX: K21.9 Gastro-esophageal reflux disease without esophagitis (principal); R94.8 Abnormal results of function studies of other organs and systems | CPT/HCPCS: 99212 ==

== ENCOUNTER 2023-08-09 09:49 | Outpatient (REF) | payer MEDICARE, SELFPAY ==
[2023-08-09 10:15] LABS: MANUAL DIFF FLAG NO
[2023-08-09 10:45] LABS: Basophils Absolute Auto 0.1 X10*3/uL (0.0-0.2); Basophils Percent Auto 0.9 % (0-2); Eosinophils Absolute Auto 0.1 X10*3/uL (0.0-0.4); Eosinophils Percent Auto 2.4 % (0-4); Hematocrit 39.8 % (37.0-47.0); Hemoglobin 13.6 g/dl (12.0-16.0); Imm Gran Abs Auto 0.03 X10*3/uL (0.00-0.03); Imm Gran Pct Auto 0.5 % (0.0-0.4); Lymphocytes Absolute Auto 1.2 X10*3/uL (1.2-4.9); Lymphocytes Percent Auto 21.9 % (20-40); Mean Corpuscular HGB Conc 34.2 g/dl (31.0-35.0); Mean Corpuscular Hemoglobin 32.5 pg (27.0-33.0); Mean Platelet Volume 9.6 fL (9.4-12.3); Monocytes Absolute Auto 0.5 X10*3/uL (0.1-1.2); Monocytes Percent Auto 8.2 % (2-11); Neutrophils Absolute Auto 3.6 x10*3/uL (2.0-8.3); Neutrophils Percent Auto 66.1 % (45-73); Platelet Count 304 X10*3/uL (160-400); Red Blood Count 4.19 X10*6/uL (4.20-5.50); Red Cell Distribution Width 13.3 % (11.0-16.0); White Blood Count 5.5 X10*3/uL (4.8-10.8)
[2023-08-09 11:40] LABS: Alanine Aminotransferase 15 U/L (0-31); Alkaline Phosphatase 63 U/L (39-117); Anion Gap 16 (12-20); Aspartate Amino Transferase 17 U/L (5-31); Bilirubin Total 0.4 mg/dL (0.0-1.0); Blood Urea Nitrogen 12 mg/dL (9-16); Calcium 9.5 mg/dL (8.4-10.2); Carbon Dioxide 24 mmol/L (22-29); Chloride 104 mmol/L (96-108); Cholesterol 230 mg/dL (<200); Estimated Glomerular Filt Rate > 60; Glucose Fasting 104 mg/dL (60-99); HDL Cholesterol 70 mg/dL (>40); LDL Cholesterol Calculated 148 mg/dL (<100); Potassium 4.3 mmol/L (3.3-5.1); Sodium 140 mmol/L (135-145); Total Protein 6.9 g/dL (6.5-8.0); Triglycerides 62 mg/dL (<150)
[2023-08-09 11:58] LABS: Vitamin D 25-OH Total 36.4 ng/mL (>30)
== END 2023-08-09 09:50 | disposition home or self-care (01) ==
LOC: HO.LAB 09:49
PROVIDERS: PCP Internal Medicine Medical Oncology; Visit Provider Internal Medicine Medical Oncology
DX: C50.919 Malignant neoplasm of unspecified site of unspecified female breast (principal); I70.90 Unspecified atherosclerosis; E55.9 Vitamin D deficiency, unspecified; E78.5 Hyperlipidemia, unspecified
CPT/HCPCS: 36415; 80053; 80061; 82306; 85025

== ENCOUNTER 2023-10-06 13:26 | Outpatient (REF) | payer MEDICARE, SELFPAY ==
--- NOTE | ~2023-10-06 | MM_ITS ---
EXAMINATION: BONE DENSITOMETRY CLINICAL INDICATION: Other specified disorders of bone density and structure, multiple sites. COMPARISON: Baseline BD dated 02/18/2021. TECHNIQUE: Using a [employer] DXA System (software version: 13.1) manufactured by [employer], dual-energy x-ray absorptiometry was performed of the lumbar spine and left hip. The images are of good technical quality. Summary results are attached. FINDINGS: LEFT FEMUR, NECK: Current: BMD 0.758 g/cm2, Z-score -0.1, T-score -2.0, osteopenia. Baseline: BMD 0.725 g/cm2. LEFT FEMUR, TOTAL: Current: BMD 0.834 g/cm2, Z-score 0.3, T-score -1.4, osteopenia, 2.3% increase from baseline (<5% change is not significant). Baseline: BMD 0.815 g/cm2. AP SPINE L1-L4: Current: BMD 0.983 g/cm2, Z-score 0.1, T-score -1.6, osteopenia, 4.9% increase from baseline (<5% change is not significant). Baseline: BMD 0.937 g/cm2. IDENTIFIED RISK FACTORS: Height loss, menopause. HISTORY OF FRACTURE: None listed. MEDICATIONS: Calcium, ERT/SERMS, vitamin D. MM/XR DEXA axial skeleton IMPRESSION: 1. DIAGNOSIS: Osteopenia based on the lowest T-score value of -2.0 in the femoral neck applying World Health Organization criteria. 2. 10-YEAR FRACTURE RISK PREDICTION, FRAX: Major osteoporotic fracture (clinical spine, forearm, hip or shoulder) 12.3%. Hip fracture 3.1%. 3. Treatment Recommendations: NOF guidelines recommend consideration for treatment in postmenopausal women and men age 50 and older presenting with the following: -A hip or vertebral (clinical or morphometric) fracture. -T-score less than or equal to -2.5 at the femoral neck or spine after appropriate evaluation to exclude secondary causes. -Low bone mass at the hip or spine and a 10-year fracture probability by FRAX of greater than or equal to 3% for hip fracture or greater than or equal to 20% for major osteoporotic fracture based on the [place] adapted WHO algorithm. 4. Other Recommendations: All treatment decisions require clinical judgment and consideration of individual patient factors, including patient preferences, comorbidities, previous drug use, risk factors not captured in the FRAX model (e.g. frailty, falls, vitamin D deficiency, increased bone turnover, interval significant decline in bone density) and possible under or overestimation of fracture risk by FRAX. Additional medical evaluation for secondary cause of low bone mineral density may be appropriate. FUTURE SCAN RECOMMENDATION: People with diagnosed cases of osteoporosis or at high risk for fracture should have regular bone mineral density tests. For patients eligible for Medicare, routine testing is allowed once every 2 years. The testing frequency can be increased to one year for patients who have rapidly progressing disease, those who are receiving or discontinuing medical therapy to restore bone mass, or have additional risk factors.
--- NOTE | ~2023-10-06 | MM_ITS ---
EXAMINATION: MM SCREENING DIGITAL BREAST TOMOSYNTHESIS, BILATERAL CLINICAL INFORMATION: Screening. Asymptomatic. The patient has a personal history of right breast cancer. COMPARISON: Mammography: This study is compared with prior exams dating back to TECHNIQUE: Digital breast tomosynthesis is performed in both the craniocaudal and mediolateral oblique views along with computer-aided detection (CAD). Synthesized 2D images are generated from the tomosynthesis. FINDINGS: There are scattered areas of fibroglandular density (ACR BI-RADS breast composition Category b). There are no significant masses, abnormal calcifications, or other abnormalities. There are postsurgical changes in the upper outer quadrant of the right breast and right axilla. MM/MM tomosynthesis screening BI IMPRESSION: No mammographic evidence of malignancy. ASSESSMENT: BI-RADS BI-RADS 2 - Benign Findings RECOMMENDATION: Routine annual mammography screening. 1 year F/U This examination should not preclude the clinical evaluation of a suspicious palpable abnormality. This patient's information was entered into a reminder system with a target due date for their next mammogram.
== END 2023-10-06 13:27 | disposition home or self-care (01) ==
LOC: HO.MAMMO 13:26
PROVIDERS: Absent Provider Internal Medicine Medical Oncology; PCP Internal Medicine; Visit Provider Internal Medicine
DX: Z12.31 Encounter for screening mammogram for malignant neoplasm of breast (principal); Z13.820 Encounter for screening for osteoporosis; M85.89 Other specified disorders of bone density and structure, multiple sites; Z78.0 Asymptomatic menopausal state
CPT/HCPCS: 77063; 77067; 77080

== ENCOUNTER → 2023-10-06 13:45 | Outpatient (BNV) | payer MEDICARE, SELFPAY | PROVIDERS: Absent Provider Internal Medicine Medical Oncology; PCP Internal Medicine; Visit Provider Radiology Diagnostic Radiology | DX: Z12.31 Encounter for screening mammogram for malignant neoplasm of breast (principal) | CPT/HCPCS: 77063; 77067 ==

== ENCOUNTER 2024-01-12 14:45 | Outpatient (AMB) | payer MEDICARE, SELFPAY ==
--- NOTE | 2024-01-12 14:48 | A.OFFVIS_ITS ---
Intake Vital Signs 01/12/24 14:49 Height 5 ft 6 in Weight 147 lb BMI 23.7 BP 120/72 Blood Pressure Location Lt brachial Position Sitting Pulse 70 Pulse Source Pulse Oximeter Pulse Oximetry (%) 96 Oxygen Delivery Method Room Air Intake Visit Reasons: medicare annual wellness - transfer Intake Note: Patient is here for an Annual Wellness Visit. Pole Tester Required: No Allergies No Known Allergies Allergy (Verified 01/12/24 14:49) Medication List - Last Reconciled 01/12/24 by Lori Kathleen PA-C antiarthritic combination no.2 (glucosamine-chondroitin) mg PO ascorbic acid (vitamin C) (Vitamin C) 1 g PO DAILY calcium cit mal-vit D2-mag ox 200-200-25 mg-unit-mg 2 tabs PO cholecalciferol (vitamin D3) 2,000 units PO DAILY omeprazole 20 mg PO DAILY timolol maleate 0.5% 1 drp ophthalmic (eye) ONCE HPI medicare annual wellness - transfer HPI Details 73-year-old female with history of right breast cancer followed by Oncology, osteopenia, glaucoma, chronic GERD last seen by Dr. Cordon coming in for annual wellness exam. In review of the notes, patient was seen by Oncology 08/10/2023 after recent negative PET scan and negative mammo advised to follow up in 6 months. Mammogram: 09/2023 BI-RADS 2 follow up in 1 year Eye exam: scheduled for 01/2024 Colonoscopy: 01/2023 repeat in 10 years. Bone density: 09/2023 osteopenia Patient mentioned she has had pain in the right side of the groin for the last 2 months which feels like a deep pain. The pain has not changed in the last 2 months denies any abnormal vaginal bleeding or discharge and denies any other symptoms. Otherwise has no acute concerns today. [facility] Medical History Cataract (lens) fragments in eye following cataract surgery, right eye Cataract (lens) fragments in eye following cataract surgery, left eye Chronic GERD Intermittent lightheadedness Osteopenia of multiple sites Family history of thyroid disease Family history of diabetes mellitus (DM) Post-menopause Heartburn Glaucoma Environmental allergies Ductal carcinoma in situ (DCIS) of right breast Surgical History History of esophagogastroduodenoscopy (EGD) Hx of colonoscopy History of lumbar surgery Status post right breast lumpectomy Family History Father Substance use disorder Diabetes mellitus Mother Breast CA, Onset Age: 85 Paternal Grandmother Ovarian cancer Social History Housing: House Alcohol intake: current Alcohol intake frequency: 0-2 drinks per day Alcohol type: wine Patient Tobacco Use Status: Never used Tobacco e-Cigarette/Vaping Use: Never Used Current occupational status: other 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 Cognitive needs: No Hearing needs: No Vision needs: No Questionnaire Medicare Wellness Checkup What [age] What gender do you identify with?: female During the past 4 weeks, how much have you been bothered by emotional problems such as feeling anxious, depressed, irritable, sad or downhearted, and blue?: not at all During the past 4 weeks, has your physical & emotional health limited your social activities with family, friends, neighbors, or groups?: not at all During the past 4 weeks, how much bodily pain have you generally had?: very mild pain During the past 4 weeks, was someone available to help you if you needed & wanted help?: no, not at all During the past 4 weeks, what was the hardest physical activity you could do for at least 2 minutes?: moderate Can you get to places out of walking distance without help? (For eg., can you travel alone on buses, taxis or drive your car?): Yes Can you go shopping for groceries or clothes without someone's help?: Yes Can you prepare your own meals?: Yes Can you do your housework without help?: Yes Because of any health problems, do you need the help of another person with your personal care needs such as eating, bathing, dressing or getting around the house?: No Can you handle your own money without help?: Yes During the past 4 weeks, how would you rate your health in general?: excellent During the past 4 weeks how have things been going for you?: very well; could hardly better Are you having difficulties driving your car?: no Do you always fasten your seat belt when you are in a car?: yes, usually During past 4 weeks, have you been bothered by the following: never: Falling or dizzy when standing up, Sexual problems?, Trouble eating well?, Teeth or denture problems?, Problems using the telephone? and Tiredness or fatigue? Have you fallen 2 or more times in the past year?: No Are you afraid of falling?: No Are you a smoker?: no During the past 4 weeks, how many drinks of wine, beer, or other alcoholic beverages did you have?: 6-9 drinks per week Do you exercise for about 20 minutes 3 or more times a week?: yes, all the time Have you been given information to help with the following?: no: Hazards in your house that might hurt you? and no: Keeping track of your medications? How often do you have trouble taking medicines the way you have been told to take them?: I always take medicine as prescribed How confident are you that you can control & manage most of your health problems?: very confident What is your race?: White PHQ-9 Over the last 2 weeks, how often have you been bothered by any of the following problems? 1. Little interest or pleasure in doing things: not at all 2. Feeling down, depressed, or hopeless: not at all 3. Trouble falling or staying asleep, or sleeping too much: not at all 4. Feeling tired or having little energy: not at all 5. Poor appetite or overeating: not at all 6. Feeling bad about yourself - or that you are a failure or have let yourself or your family down: not at all 7. Trouble concentrating on things, such as reading the newspaper or watching television: not at all 8. Moving or speaking so slowly that other people could have noticed. Or the opposite - being so fidgety or restless that you have been moving around a lot more than usual: not at all 9. Thoughts that you would be better off or of hurting yourself in some way: not at all Total score: 0 Depression Screening Interpretation: Negative Depression Screening Done: Yes 33590 - PHQ-9 Billing: Yes Source: Developed by Drs. Jed Clancy, Isis Marinelli, Daniel Garzon and colleagues, with an educational nicole from [employer]. Review of Systems Const Denies body aches, Denies fatigue, Denies fever(s), Denies frequent falls, Denies headache(s) and Denies weakness Eyes Reports no additional complaints and Denies change in vision ENT Denies dysphagia, Denies dizziness, Denies facial pain, Denies headache(s), Denies nasal congestion and Denies odynophagia Card Denies chest pain, Denies syncope, Denies irregular heart rhythm, Denies leg edema, Denies lightheadedness and Denies dyspnea Resp Denies cough and Denies dyspnea GI Denies constipation, Denies dysphagia, Denies dyspepsia, Denies diarrhea, Denies nausea, Denies odynophagia and Denies vomiting Denies urinary frequency, Denies dysuria, Denies urinary hesitancy and Denies urinary urgency Musc Details: right sided groin discomfort Denies back pain and Denies myalgias Skin/Breast Reports system reviewed and no additional complaints, except as documented Neuro Denies dizziness, Denies syncope, Denies frequent falls, Denies headache(s) and Denies weakness Psych Reports no additional complaints Endo Denies fatigue Physical Exam Vital Signs: Last Vital Signs Pulse 70 01/12/24 14:49 BP 120/72 01/12/24 14:49 Pulse Ox 96 01/12/24 14:49 Oxygen Delivery Method Room Air 01/12/24 14:49 BMI result Body Mass Index 23.7 Const General: cooperative, healthy appearing, comfortable and no acute distress Orientation/consciousness: patient oriented x3 HEENT Head: Yes normocephalic Ears: hearing grossly normal bilaterally General nose exam: Normal external nose present Eyes General: appearance normal, both eyes and all related structures Conjunctivae: conjunctivae normal Neck Neck: Yes full ROM and Yes no lymphadenopathy Resp Effort & Inspection: normal respiratory effort Auscultation: clear to auscultation bilaterally, no crackles, no rales, no rhonchi and no wheezes Cardio Rate: regular rate Rhythm: regular rhythm Skin General skin exam: no rashes or lesions noted Neuro General: patient oriented x3 Cognition (Neuro): normal cognition Gait exam (Neuro): Normal gait present Extrem General: Yes normal to inspection, Yes full ROM and No edema Psych Affect: normal affect Attitude: cooperative Insight: Good insight present (Psych) Judgement: Good judgement present (Psych) Assessment & Plan Assessment & Plan (1) Abnormal PET scan of colon: Comment: pet scan, recommend colonoscopy -procedure report reviewed-very happy about results Code(s): R94.8 - Abnormal results of function studies of other organs and systems Plan: Colonoscopy was completed 01/2023 advised to repeat in 10 years. (2) Osteopenia of multiple sites: Code(s): M85.89 - Other specified disorders of bone density and structure, multiple sites Plan: Continue on calcium and vitamin-D supplementation. (3) Glaucoma: Code(s): H40.9 - Unspecified glaucoma Plan: Patient regularly follows for annual eye exams and is using timolol drops daily. (4) Chronic GERD: Code(s): K21.9 - Gastro-esophageal reflux disease without esophagitis Plan: Avoid trigger foods such as citrus, tomato products, soda, caffeine, spicy foods and other foods that may be irritating to your stomach. Avoid laying flat 3-4 hours after eating and elevate the head of the bed 30 degrees to prevent acid from moving into the esophagus. Continue on omeprazole 20 mg. (5) Medicare annual wellness visit, subsequent: Code(s): Z00.00 - Encounter for general adult medical examination without abnormal findings Plan: Patient is up-to-date on all recommended routine screenings and vaccinations for her age. Comorbidities are well managed at this time advised to follow up in 1 year or sooner if new problems arise. [place] of care was reviewed with patient patient was provided with a written screening schedule. MOLST forms are previously completed and scanned in patient's chart. (6) Groin pain: Code(s): R10.30 - Lower abdominal pain, unspecified Plan: right sided groin pain present for about 2 months most likely muscular in nature. Offered x-ray for further evaluation of hip and pelvis which was deferred at this time. Advised patient to continue to monitor symptoms and reach out to the office if she would like further workup. She did request referral to Gynecology for annual exam which was placed today. Plan This note was constructed using voice recognition software. While every effort has been made to ensure accuracy and nail artist, still areas may have been included sometimes these areas may affect the content or meeting of the given symptoms. Total time spent caring for the patient today was 30 minutes. This includes time spent before the visit reviewing the chart, time spent during the visit, and time spent after the visit and documentation. 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
[2024-01-12 14:49] VITALS: BP 120/72; PULSE 70; O2SAT 96; BMI 23.7
== END 2024-01-12 15:29 | disposition home or self-care (01) ==
PROVIDERS: PCP Internal Medicine
DX: Z00.00 Encounter for general adult medical examination without abnormal findings (principal); R94.8 Abnormal results of function studies of other organs and systems; M85.89 Other specified disorders of bone density and structure, multiple sites; H40.9 Unspecified glaucoma; K21.9 Gastro-esophageal reflux disease without esophagitis; R10.30 Lower abdominal pain, unspecified

== ENCOUNTER → 2024-01-12 14:45 | Outpatient (BNVA) | payer MEDICARE, SELFPAY | PROVIDERS: PCP Internal Medicine ==

== ENCOUNTER 2024-05-08 10:16 | Outpatient (AMB) | payer MEDICARE, SELFPAY ==
--- NOTE | 2024-05-08 10:23 | MHC.PC.OV ---
Vital Signs 05/08/24 10:25 Height 5 ft 6.54 in Weight 146 lb 2 oz BMI 23.2 BP 120/72 Blood Pressure Location Lt brachial Position Sitting Pulse 71 Pulse Source Pulse Oximeter Temp 97.1 F Temp Source Skin Pulse Oximetry (%) 98 Oxygen Delivery Method Room Air Intake Visit Reasons: rt hip pain Intake Note: Patient is here to follow up on right hip pain, Right knee, right toes fungus. Possible uti Molding Manager Required: No Manager Investigations: Not Required per policy Accompanied by: Self / Same As Patient Allergies No Known Allergies Allergy (Verified 05/08/24 10:24) Medication List - Last Reconciled 05/08/24 by Lori Kathleen PA-C antiarthritic combination no.2 (glucosamine-chondroitin) mg PO ascorbic acid (vitamin C) (Vitamin C) 1 g PO DAILY calcium cit mal-vit D2-mag ox 200-200-25 mg-unit-mg 2 tabs PO cholecalciferol (vitamin D3) 2,000 units PO DAILY omeprazole 20 mg PO DAILY timolol maleate 0.5% 1 drp ophthalmic (eye) ONCE Tobacco use date assessed: 05/08/24 Fall risk assessment: No Falls in past year Last assessed Fall Risk: 05/08/24 Dental Screening Dental Screen Date: 05/08/24 Did you have a dental visit in the last 12 months?: Yes Did you have a dental problem in the last 6 months where you did not have access to dental care?: No Was dental information given to patient?: Patient has dentist HPI rt hip pain HPI Details 73-year-old female with history of right breast cancer followed by Oncology, osteopenia, glaucoma, chronic GERD last seen 12/2023 coming in for acute problem. Patient presents today with several concerns. presenting with onychomycosis, urinary tract symptoms, and musculoskeletal pain in the right hip and knee. She has been using topical treatment for onychomycosis by her boilers and pressure vessels inspector for two months but has declined oral treatment due to liver monitoring requirements. She reported urinary symptoms without significant findings of discharge or foul-smelling urine, with a history of positive UTI tests. Musculoskeletal symptoms include right hip and knee pain noted over three months, initially evaluated by an oncologist, with more recent pain in the groin region. She is requesting an MRI for the hip and knee pain. She states she does yoga every day and this is where the significant amount of pain comes in. Also reported travel-related nausea concerns, planning to travel and requiring nausea management. [facility] Medical History Cataract (lens) fragments in eye following cataract surgery, right eye Cataract (lens) fragments in eye following cataract surgery, left eye Chronic GERD Intermittent lightheadedness Osteopenia of multiple sites Family history of thyroid disease Family history of diabetes mellitus (DM) Post-menopause Heartburn Glaucoma Environmental allergies Ductal carcinoma in situ (DCIS) of right breast Surgical History History of dental surgery History of esophagogastroduodenoscopy (EGD) Hx of colonoscopy History of lumbar surgery Status post right breast lumpectomy Family History Father Substance use disorder Diabetes mellitus Mother Breast CA, Onset Age: 85 Paternal Grandmother Ovarian cancer Social History Housing: House Alcohol intake: current Alcohol intake frequency: 0-2 drinks per day Alcohol type: wine Patient Tobacco Use Status: Never used Tobacco e-Cigarette/Vaping Use: Never Used Second Hand Smoke Exposure: No service: No Current occupational status: other 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 1. Little interest or pleasure in doing things: not at all 2. Feeling down, depressed, or hopeless: not at all 3. Trouble falling or staying asleep, or sleeping too much: not at all 4. Feeling tired or having little energy: not at all 5. Poor appetite or overeating: not at all 6. Feeling bad about yourself - or that you are a failure or have let yourself or your family down: not at all 7. Trouble concentrating on things, such as reading the newspaper or watching television: not at all 8. Moving or speaking so slowly that other people could have noticed. Or the opposite - being so fidgety or restless that you have been moving around a lot more than usual: not at all 9. Thoughts that you would be better off or of hurting yourself in some way: not at all Total score: 0 Depression Screening Interpretation: Negative Depression Screening Done: Yes Source: Developed by Drs. Jed Clancy, Isis Marinelli, Daniel Garzon and colleagues, with an educational nicole from [employer]. Thrive Questionnaire Date Thrive assessed: 05/08/24 I am a: Patient What is your living situation today?: I have a steady place to live Within the past 12 months, did the food you bought not last and you didn't have the money to get more?: Never true Within the past 12 months, did you worry whether your food would run out before you got money to buy more?: Never true Do you have trouble paying for medicines?: No Do you have trouble getting transportation to medical appointments?: No Do you have trouble paying your heating and electricity bill?: No Do you have trouble taking care of your child, family member or friend?: No Do you have trouble with day-to-day activities such as bathing, preparing meals, shopping, managing finances, etc.?: No Are you currently unemployed and looking for a job?: No Are you interested in more education?: No Please select the resources that you would like help with: None Currently or been in a relationship where the following occur: No concerns reported THRIVE Score: 0 AUDIT C Alcohol Use Questionnaire (AUDIT-C) 1. How often do you have a drink containing alcohol?: Monthly or less 2. How many drinks containing alcohol do you have on a typical day when you are drinking?: 1 or 2 3. How often do you have six or more drinks on one occasion?: Never Total Score: 1 YADIRA-7 AMB Questionnaire YADIRA-7 Date YADIRA - 7 assessed: 05/08/24 Feeling nervous, anxious, or on edge: 0 = Not at all Not being able to stop or control worryin = Not at all Worrying too much about different things: 0 = Not at all Trouble relaxin = Not at all Being so restless that it is hard to sit still: 0 = Not at all Becoming easily annoyed or irritable: 0 = Not at all Feeling afraid as if something awful might happen: 0 = Not at all Total YADIRA-7 score (0-4 normal; 5-9 mild; 10-14 moderate; 15-21 severe): 0 Source: Developed by Drs. Jed Clancy, Isis Marinelli, Daniel Garzon and colleagues, with an educational nicole from [employer]. Review of Systems Const Denies body aches, Denies chills, Denies fever(s), Denies headache(s) and Denies poor appetite Eyes Reports no additional complaints ENT Denies dysphagia, Denies dizziness, Denies headache(s) and Denies odynophagia Card Denies chest pain, Denies syncope, Denies edema, Denies irregular heart rhythm, Denies lightheadedness and Denies dyspnea Resp Denies cough and Denies dyspnea GI Denies abdominal pain, Denies constipation, Denies dysphagia, Denies diarrhea, Reports nausea, Denies odynophagia and Denies vomiting Reports no additional complaints Musc Reports as per HPI and Denies abnormal gait Skin/Breast Reports system reviewed and no additional complaints, except as documented Neuro Denies abnormal gait, Denies dizziness, Denies syncope and Denies headache(s) Psych Reports no additional complaints Physical exam (Primary Care) Vital Signs: Last Vital Signs Temp 97.1 F 05/08/24 10:25 Pulse 71 05/08/24 10:25 BP 120/72 05/08/24 10:25 Pulse Ox 98 05/08/24 10:25 Oxygen Delivery Method Room Air 05/08/24 10:25 BMI result Body Mass Index 23.2 Tobacco/Smoking Status: Tobacco use Status Tobacco use date assessed 05/08/24 05/08/24 10:36 Patient Tobacco Use Status Never used Tobacco 05/08/24 10:36 e-Cigarette/Vaping Use Never Used 05/08/24 10:36 PHQ-9: PHQ-9 Score PHQ-9: Total score 0 05/08/24 10:57 Depression Screening Interpretation: Negative Thrive Assessment: Date of Thrive Assessment Date Thrive assessed 05/08/24 05/08/24 10:36 Currently or been in a relationship where the following occur: No concerns reported Const General: cooperative, healthy appearing, comfortable and no acute distress Orientation/consciousness: patient oriented x3 HENMT Head: Yes normocephalic Ears: hearing grossly normal bilaterally General nose exam: Normal external nose present Eyes General: appearance normal, both eyes and all related structures Conjunctivae: conjunctivae normal Neck Neck: Yes full ROM and Yes no lymphadenopathy Resp Effort & Inspection: normal respiratory effort Auscultation: clear to auscultation bilaterally, no crackles, no rales, no rhonchi and no wheezes Cardio Rate: regular rate Rhythm: regular rhythm General: Yes no CVA tenderness Back/Spine/Pelvis Other: No pain to palpation over right hip or low back area. Back: no CVA tenderness Skin Other: Nail thickening in yellow discoloration of right great toe General skin exam: no rashes or lesions noted Neuro General: patient oriented x3 Gait exam (Neuro): Normal gait present Extrem Other: No pain to palpation of right knee. Strength sensation intact in bilateral lower extremities General: Yes normal to inspection, Yes full ROM and No edema Psych Affect: normal affect Attitude: cooperative Insight: Good insight present (Psych) Judgement: Good judgement present (Psych) Results AMB Urinalysis Dipstick UR Leukocytes Small Last Edit by SOFI Johnson on 05/08/24 10:47 UR Nitrite Negative Last Edit by SOFI Johnson on 05/08/24 10:47 UR Urobilinogen Normal Last Edit by SOFI Johnson on 05/08/24 10:47 UR Protein Negative Last Edit by SOFI Johnson on 05/08/24 10:47 UR Ph 6.0 Last Edit by SOFI Johnson on 05/08/24 10:47 UR Blood Negative Last Edit by SOFI Johnson on 05/08/24 10:47 UR Specific [place] 1.010 Last Edit by SOFI Johnson on 05/08/24 10:47 UR Ketone Negative Last Edit by SOFI Johnson on 05/08/24 10:47 UR Bilirubin Negative Last Edit by SOFI Johnson on 05/08/24 10:47 UR Glucose Negative Last Edit by SOFI Johnson on 05/08/24 10:47 Results Reviewed Results Reviewed: Laboratory Last Values Urine pH (Clinic) 6.0 05/08/24 10:36 Specific [place] (Clinic) 1.010 05/08/24 10:36 Ur Protein (Clinic) Negative 05/08/24 10:36 Ur Ketones (Clinic) Negative 05/08/24 10:36 Urine Blood (Clinic) Negative 05/08/24 10:36 Urine Nitrite Negative 05/08/24 10:36 Urine Bilirubin (Clinic) Negative 05/08/24 10:36 Urobilinogen (Clinic) Normal 05/08/24 10:36 Leukocyte Esterase (Clinic) Small 05/08/24 10:36 Urine Glucose (Clinic) Negative 05/08/24 10:36 Coding Level of Care Code Est Pt Level 4 (03239) Diagnoses Right knee pain M25.561 Nausea R11.0 Right hip pain M25.551 Onychomycosis B35.1 Urinary tract infection N39.0 Assessment & Plan Assessment & Plan (1) Right knee pain: Code(s): M25.561 - Pain in right knee Category: Medical Plan: Ordered x-rays to investigate musculoskeletal discomfort knee, discussed non-pharmacologic options like Voltaren gel if CBD cream is less effective. (2) Nausea: Code(s): R11.0 - Nausea Category: Medical Plan: Provided an anti-nausea patch for travel purposes, highlighting side effect management. (3) Right hip pain: Code(s): M25.551 - Pain in right hip Category: Medical Plan: Patient refusing right hip x-ray requesting MRI at this time. I did discuss with the patient that MRI would likely not be covered by insurance and she would need an x-ray and possibly physical therapy. I did offer to place the MRI order which she declined and states she will follow up with her oncologist. (4) Onychomycosis: Code(s): B35.1 - Tinea unguium Category: Medical Plan: Continued topical antifungal treatment for onychomycosis due to patient's reservation on oral therapy options. Continue to follow up Dermatology. Patient refusing terbinafine due to liver monitoring (5) Urinary tract infection: Code(s): N39.0 - Urinary tract infection, site not specified Category: Medical Plan: Initiated antibiotic treatment for suspected urinary tract infection based on symptomatic presentation. We will send urine for culture. Prescription sent for Macrobid b.i.d. for 5 days. Plan This note was constructed using voice recognition software. While every effort has been made to ensure accuracy and technical business analyst, still areas may have been included sometimes these areas may affect the content or meeting of the given symptoms. Total time spent caring for the patient today was twenty minutes. This includes time spent before the visit reviewing the chart, time spent during the visit, and time spent after the visit and documentation. Orders: Orders AMB Urinalysis Dipstick Today Z13.9 - Encounter for screening, unspecified XR knee RT 2V Today M25.561 - Pain in right knee Medications: New nitrofurantoin monohyd/m-cryst 100 mg must administer with a meal/food 100 mg PO Q12H 10 caps 0RF 5 days scopolamine base 1 patch transdermal Q3D PRN 4 ea 0RF nausea and vomiting
[2024-05-08 10:25] VITALS: BP 120/72; PULSE 71; TEMP 36.2; O2SAT 98; BMI 23.2
== END 2024-05-08 11:10 | disposition home or self-care (01) ==
DX: M25.561 Pain in right knee (principal); R11.0 Nausea; M25.551 Pain in right hip; B35.1 Tinea unguium; N39.0 Urinary tract infection, site not specified; Z13.9 Encounter for screening, unspecified

== ENCOUNTER 2024-05-08 10:16 | Outpatient (REF) | payer MEDICARE, SELFPAY ==
--- NOTE | ~2024-05-08 | XR_ITS ---
EXAMINATION: XR KNEE, RIGHT CLINICAL INFORMATION: M25.561 - Pain in right knee COMPARISON: None available. TECHNIQUE: Four views of the right knee. FINDINGS: No acute cortical disruption or malalignment. No lytic or blastic lesions. Minimal joint space narrowing involving the medial compartment. No suprapatellar bursa joint effusion. XR/XR knee RT 2V IMPRESSION: Mild medial compartment osteoarthrosis. Electronically signed by: Anup Toledo MD 05/08/2024 12:26 PM ELLIE ZAPATA
[2024-05-08 12:12] LABS: Appearance Urine Clear; Color Urine Yellow; Glucose Urine UA Negative (Negative); Leukocyte Esterase Urine Small (1+) (Negative); Nitrite Urine Negative (Negative); PH 6.5 (5.0-9.0); Specific Gravity - Urine 1.015 (1.005-1.025); UMIC TRIGGER UACC YES; Urine Blood Negative (Negative); Urine Ketones Negative (Negative); Urine Protein Negative (Neg-Trace)
[2024-05-08 12:26] LABS: Bacteria Urine None Seen (None Seen); Hyaline Casts Urine 0-2 /LPF (0-2); RBC Urine 0-2 /HPF (0-2); Squamous Epithelial Cell Urine 0-2 /HPF (0-2); UACC Culture Trigger YES; WBC Urine 0-5 /HPF (0-5)
== END 2024-05-08 10:17 | disposition home or self-care (01) ==
LOC: HO.LAB 10:16
DX: M25.561 Pain in right knee (principal); M25.551 Pain in right hip; R11.0 Nausea; B35.1 Tinea unguium; N39.0 Urinary tract infection, site not specified
CPT/HCPCS: 73560; 81001; 81002; 87086; 96127; 99212

== ENCOUNTER → 2024-05-08 11:25 | Outpatient (BNV) | payer MEDICARE, SELFPAY | PROVIDERS: Visit Provider Radiology Diagnostic Radiology | DX: M17.11 Unilateral primary osteoarthritis, right knee (principal) | CPT/HCPCS: 73560 ==

== ENCOUNTER 2024-07-21 09:51 | Outpatient (REF) | payer MEDICARE, SELFPAY ==
[2024-07-21 10:51] LABS: Estimated Average Glucose 114 mg/dL; Hemoglobin A1C 137.8727 umol/L; Hemoglobin A1c % 5.6 % (<6.0); Total Hemoglobin (HGBA1C) 3696.9197 umol/L
[2024-07-21 10:56] LABS: Appearance Urine Clear; Color Urine Yellow; Glucose Urine UA Negative (Negative); Leukocyte Esterase Urine Trace (Negative); Nitrite Urine Negative (Negative); PH 7.5 (5.0-9.0); Specific Gravity - Urine <= 1.005 (1.005-1.025); UMIC TRIGGER UACC YES; Urine Blood Negative (Negative); Urine Ketones Negative (Negative); Urine Protein Negative (Neg-Trace)
[2024-07-21 11:09] LABS: Bacteria Urine None Seen (None Seen); Hyaline Casts Urine 0-2 /LPF (0-2); RBC Urine 0-2 /HPF (0-2); Squamous Epithelial Cell Urine 0-2 /HPF (0-2); WBC Urine 0-5 /HPF (0-5)
[2024-07-21 11:33] LABS: Folate 4.7 ng/mL (> or = 4.0); Vitamin B12 328 pg/mL (200-900)
== END 2024-07-21 09:52 | disposition home or self-care (01) ==
LOC: HO.LAB 09:51
DX: Z00.00 Encounter for general adult medical examination without abnormal findings (principal); R39.9 Unspecified symptoms and signs involving the genitourinary system; Z13.1 Encounter for screening for diabetes mellitus; Z13.29 Encounter for screening for other suspected endocrine disorder
CPT/HCPCS: 36415; 81001; 82607; 82746; 83036; 84439; 84443

== ENCOUNTER 2024-10-11 13:38 | Outpatient (REF) | payer MEDICARE, SELFPAY ==
--- OUTSIDE RECORDS SUMMARY | 2023-08-10 10:30 | XMS_ITS ---
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 Plan Of Treatment Medication Medication Name Sig Start Date Stop Date Notes Timolol Maleate Omeprazole 10 MG 1 capsule Orally Once a day Vitamin D3 0270772 UNIT/GM as directed Next Appt Details Follow Up: 6 Months, Reason: ov Provider Name:Jed Berrios, 02/12/2025 11:00:00 AM, [address] [place] [address], [address], Progress Notes * LIZBETH CarlitaDOB:[birth year] (72 yo F)Acc No.[id number]:08/10/2023 Progress Notes Patient: Carlita Joshi Provider: Tessie Berrios MD :1950 A ge:72 Y S ex:Female Date:08/10/2023 Address:[address] Pcp:Jackie Cordon MD Subjective: * Chief Complaints: [...] ggressive non-smoker S he was born in [facility]. 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 She was born in [place], [place]. 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 Plan: * Treatment: * Procedure Codes: * Follow Up: 6 Months (Reason: ov) * Images: * Sign off status: Completed true * Provider: Tessie Berrios MD Date: 0 08/10/2023 Generated for Karo bill/Estela/Abbieitting on: 0 10/11/2024 02:29 PM EDT History and Physical Notes * HPI (History of Present Illness) Category Sub-Category Detail Notes COVID-19 Screening Questions Have you had any new onset fever, chills, cough, congestion, sore throat, shortness of breath, muscle aches?: No Have you been exposed to the virus withi n the last 10 days?: No Have you travelled internationally in [facility] last 10 days?: No Have you been [...]
== END 2024-10-11 13:39 | disposition home or self-care (01) ==
LOC: HO.MAMMO 13:38
DX: Z12.31 Encounter for screening mammogram for malignant neoplasm of breast (principal)
CPT/HCPCS: 77063; 77067

== ENCOUNTER → 2024-10-11 13:45 | Outpatient (BNV) | payer MEDICARE, SELFPAY | PROVIDERS: Visit Provider Radiology Body Imaging | DX: Z12.31 Encounter for screening mammogram for malignant neoplasm of breast (principal) | CPT/HCPCS: 77063; 77067 ==

== ENCOUNTER 2024-10-24 10:37 | Outpatient (REF) | payer MEDICARE, SELFPAY ==
--- OUTSIDE RECORDS SUMMARY | 2023-08-10 10:30 | XMS_ITS ---
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 Breast cancer, Degenerative disc disease, Hyperlipidemia Medications Medication SIG (Take, Route, Frequency, Duration) Notes Start Date End Date Status Timolol Maleate Acti ve Omeprazole 10 MG 1 capsule Orally Onc e a day Active Vitamin D3 7822459 UNIT/GM as directed Active Social History Tobacco Use: Social History Observation Description Date Details (start date - stop date) Never Smoker NA - NA Tobacco Use/Smoking Question Answer Notes Patient is a nonsmoker Additional Findings: Tobacco Non-User Aggressive non-smoker Vital Signs Temperature 97.1 degrees Fahrenheit 08/10/19 24 Blood pressure systolic 113 mm Hg 08/10/19 24 Blood pressure diastolic 62 mm Hg 024 Heart Rate 70 /min 08/10/2023 Height 66 in 08/10/2023 Weight 143 lbs 08/10/2023 BMI 23.08 kg/m2 08/10/2023 Encounters Encounter Location Date Provider Diagnosis Jed Berrios III, MD [address] [place] [address] [place] [address] 08/10/2023 Jed Berrios Breast cancer, stage 1 C50.919 ; Multilevel degenerative disc disease M53.9 ; Hyperlipidemia E78.5 and 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 The breasts were not examined at the patient's request. 08/10/2023 Multilevel degenerative disc disease (ICD-10 - M53.9) She has occasional mild arthritic complaints. No change in her physical examination was noted today. 08/10/2023 Hyperlipidemia (ICD-10 - E78.5) She was continued on current therapy. Comprehensive blood work with a fasting lipid profile was ordered. 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 Plan Of Treatment Medication Medication Name Sig Start Date Stop Date Notes Timolol Maleate Omeprazole 10 MG 1 capsule Orally Once a day Vitamin D3 8066258 UNIT/GM as directed Next Appt Details Follow Up: 6 Months, Reason: ov Provider Name:Jed Berrios, 02/12/2025 11:00:00 AM, [address] [place] [address], [id number], Progress Notes * LIZBETH CarlitaDOB:[birth year] (72 yo F)Acc No.[id number]:08/10/2023 Progress Notes Patient: Carlita Joshi Provider: Tessie Berrios MD :1950 A ge:72 Y S ex:Female Date:08/10/2023 Address:[address] Pcp:Jackie Cordon MD Subjective: * Chief Complaints: * . Breast cancerDegenerative disc diseaseHyperlipidemia * HPI: C OVID-19 Screening: She returns every 6 months to be monitored for recurrent breast cancer or a new primary. She recently had a negative PET CT scan. She recently had a negative mammogram. She is due for a mammogram in August of 2023. She has been inspecting her breast and found no new lumps. She continues to work full-time. Questions H ave you experienced fever, chills, cough, sore throat, shortness of breath, difficulty breathing, muscle aches, loss of taste or smell? N o H ave you been exposed to the virus within the last 10 days? N o H ave you travelled internationally in the last 10 days? N o H ave you been exposed to COVID-19 in the past? N o * ROS: G eneral/Constitutional: pain o nly normal aches and pains. C hills d enies.?Fatigue a dmits. F ever d enies. E NT: Decreased hearing d enies. R espiratory: Cough d enies. C ardiovascular: Chest pain with exertion d enies. D yspnea on exertion?denies. S hortness of breath d enies. G astrointestinal: Constipation o ccasional. D ecreased appetite d enies. D iarrhea d enies. H eartburn d enies. N ausea d enies. R ectal bleeding d enies. V omiting d enies. H ematology: bruising d enies. p etechiae d enies. S wollen glands n one have been noted. G enitourinary: Frequent urination d enies. M usculoskeletal: Muscle aches d enies. P ainful joints d enies. S ciatica d enies. W eakness d enies. S kin: Itching d enies. R manjula d enies. S kin lesion(s)?denies. N eurologic: Difficulty speaking d enies. D izziness d enies.?Headache d enies. L ow back pain d enies. P sychiatric: Depressed mood d enies. * Medical History: * Surgical History: s monique surgery for disc disease 3 retinal procedures 08/2009 right lumpectomy lasix left eye * Hospitalization/Major Diagno stic Procedure: D enies Past Hospitalization * Family History: F ather: , unknown causes. M other: , breast cancer, diagnosed with Cancer. S iblings: alive, obesity, diagnosed with DM, HTN. 1 brother(s) , 2 sister(s) . . Her mother of inflammatory breast cancer. Brother is healthy. * Social History: T obacco Use: T obacco Use/Smoking P atient is a n onsmoker A dditional Findings: Tobacco Non-User A ggressive non-smoker S he was born in [facility]. 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 She was born in [place], [place]. * Medications: T akingTimolol Maleate Omeprazole 10 MG Capsule Delayed Release 1 capsule Orally Once a dayVitamin D3 7697055 UNIT/GM Liquid as directed Taking Timolol Maleate Taking Omeprazole 10 MG Capsule Delayed Release 1 capsule Orally Once a dayTaking Vitamin D3 2899400 UNIT/GM Liquid as directed DiscontinuedAnastrozole 1 MG Tablet 1 tablet Orally Once a dayMedication List reviewed and reconciled with the patientDiscontinued Anastrozole 1 MG Tablet 1 tablet Orally Once a dayMedication List reviewed and reconciled with the patient * Allergies: N o Known Drug Allergyno[Allergies Verified] Objective: * Vitals: H t: 66, Wt:143, BMI:23.08, BP:113/62, HR:70, Temp:97.1, Wt-k.86. * Examination: G eneral Examination: GENERAL APPEARANCE: p leasant, well nourished, well developed, in no acute distress, calm and relaxed , woman. HEAD: a traumatic, normocephalic. EYES: e jonathan, perrla, anicteric, conjugate. EARS: n ormal. NOSE: s eptum intact. ORAL CAVITY: n ormal, unremarkable. NECK/THYROID: n o jugular venous distention, no carotid bruit, thyroid normal. LYMPH NODES: n o enlarged lymph nodes,spleen normal. SKIN: n o suspicious lesions, anicteric. HEART: n o clicks, gallops, murmurs, or rubs, regular rhythm, S1, S2 normal, no s3, or vascular bruits. LUNGS: c lear to auscultation . BREASTS: n o masses palpable bilaterally , no dimpling , no discharge , no drainage , nontender , symmetrical, Scar upper outer quadrant right breast and right axilla. ABDOMEN: b owel sounds normal, no ascites, no organomegaly, no mass. RECTAL EXAM: n ot examined. MUSCULOSKELETAL: e xtremities unremarkable, no clubbing, cyanosis or edema. PERIPHERAL PULSES: n ormal. NEUROLOGIC: a lert and oriented, cranial nerves 2-12 grossly intact, deep tendon reflexes 2+ symmetrical, motor strength normal upper and lower extremities, sensory exam intact. PSYCH: a lert, oriented. Assessment: * Assessment: 1. B reast cancer, stage 1 - C50.919 (Primary), There was no sign of recurrent disease or a new primary. The breasts were not examined at the patient's request. 2 . M ultilevel degenerative disc disease - M53.9, She has occasional mild arthritic complaints. No change in her physical examination was noted today. 3 . H yperlipidemia - E78.5, She was continued on current therapy. Comprehensive blood work with a fasting lipid profile was ordered. 4 . M ultiple defects of retina - H33.339, She has not tube pusher and retinal 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 Plan: * Treatment: * Procedure Codes: * Follow Up: 6 Months (Reason: ov) * Images: * Sign off status: Completed true * Provider: Tessie Berrios MD Date: 0 08/10/2023 Generated for Karo bill/Estela/Abbieitting on: 0 10/24/2024 11:44 AM EDT History and Physical Notes * HPI (History of Present Illness) Category Sub-Category Detail Notes COVID-19 Screening Questions Have you had any new onset fever, chills, cough, congestion, sore throat, shortness of breath, muscle aches?: No Have you been exposed to the virus withi n the last 10 days?: No Have you travelled internationally in [facility] last 10 days?: No Have you been exposed to COVID-19 in the past?: No Examination Category Sub-Category Detail Notes General Examination GENERAL APPEARANCE: pleasant , well nourished, well developed, in no acute distress, calm and relaxed , woman HEAD: atraumatic, normocep halic EYES: eomi, perrla, anicte lea, conjugate EARS: normal NOSE: septum intact NECK/THYROID: no jugular venous di stention, no carotid bruit, thyroid normal HEART: no clicks, gallops, murmurs, or rubs, regular rhythm, S1, S2 normal, no s3, or vascular bruits LUNGS: clear to auscultatio n ABDOMEN: bowel sounds normal, no ascites, no organomegaly, no mass NEUROLOGIC: alert and oriented, cranial nerves 2-12 grossly intact, deep tendon reflexes 2+ symmetrical, motor strength normal upper and lower extremities, sensory exam intact SKIN: no suspicious lesion s, anicteric PERIPHERAL PULSES: normal BREASTS: no masses palpable b ilaterally , no dimpling , no discharge , no drainage , nontender , symmetrical, Scar upper outer quadrant right breast and right axilla MUSCULOSKELETAL: extremities unremark able, no clubbing, cyanosis or edema LYMPH NODES: no enlarged lymph no sánchez,spleen normal RECTAL EXAM: not examined PSYCH: alert, oriented ORAL CAVITY: normal, unremarkable
--- NOTE | ~2024-10-24 | XR_ITS ---
EXAMINATION: XR HIP, LEFT CLINICAL INFORMATION: M25.552 - Pain in left hip COMPARISON: None available. TECHNIQUE: Two views of the left hip. FINDINGS: SI joints are symmetrical. There is minimal osteophyte formation at the inferior right SI joint. There is faint linear calcific density within the pubic symphysis fibrocartilaginous disc. There are small marginal osteophytes superiorly. The joint spaces are congruent with subtle axial joint space narrowing on the left. There are roof osteophytes involving both acetabulum. There are small marginal osteophytes involving the right femoral head. XR/XR hip LT w PEL1V IMPRESSION: Mild degenerative changes, bilateral hip joints, right SI joint, and pubic symphysis joint. Pyrophosphate deposition is present in the disc of the pubic symphysis joint. Electronically signed by: Dannie Aceves MD 10/24/2024 11:13 AM EDT
--- OUTSIDE RECORDS SUMMARY | 2024-10-24 11:44 | XMS_ITS | Encounter Summary ---
Author Organization [facility] Address [address] [place] [address] Phone Care Team Providers Care Area Development Consultant Name Role Phone Hilario Charo A Primary Care Provider [phone] Hilario Charo A MD Unavailable [phone] Molly Walsh Primary Care Provider Encounter Details Date Type Department Care Team (Latest Contact Info) Description 01/27/2020 Transcribe Orders Virtual Department [address] [place] [address] Michael Greenberg MD [address] [place] [phone] Encounter for preprocedure screening laboratory testing for COVID-19 (Primary Dx) Social History Tobacco Use Types Packs/Day Years Used Date Smoking Tobacco: Never Smokeless Tobacco: Never Alcohol Use Standard Drinks/Week Comments Yes 7 (1 standard drink = 0.6 oz pur e alcohol) Comments Unknown Sex and Gender Information Value Date Recorded Sex Assigned at Not on file Legal Sex Female 10:02 PM EDT Gender Identity Not on file Sexual Orientation Not on file documented as of this encounter Plan of Treatment Upcoming Encounters Date Type Department Care Team (Latest Contact Info) Description 11/06/2024 Procedure Pass [facility]oscopy Admitting Dept Virtual Department [address] [place] [id number] 11/06/2024 2:00 PM EDT Hospital Encounter [facility] Admitting Dept Virtual Department [address] [place] [address] Michael Greenberg MD [address] [place] [address] 11/06/2024 2:00 PM EDT - 11/06/2024 2:15 PM EDT Surgery [facility]oscopy Admitting Dept Virtual Department [address] [place] [address] Michael Greenberg MD [address] [place] [address] ESOPHAGOGASTRODUODENOSCOPY Scheduled Procedures Name Priority Associated Diagnoses Date/Ti me ESOPHAGOGASTRODUODENOSCOPY Gastroesophageal reflux disease with esophagitis, unspecified whether hemorrhage 11/06/2024 2:00 PM EDT documented as of this encounter Results * COVID-19 PCR Order (01/30/2020 10:45 AM EST) Specimen Source 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 NO Other 01/30/2020 10:4 5 AM EST 01/30/2020 11:23 AM EST us Michael Greenberg MD BODY FLUIDS AND STOOLS ORDERABLE S Edited Result - Final [address] [address] documented in this encounter Visit Diagnoses Diagnosis Encounter for preprocedure screening laboratory testing for COVID-19- Primary Gastroesophageal reflux disease with esophagitis, unspecified whether hemorrhage documented in this encounter Additional Health Concerns Assessment Noted Time PHQ-2 Depression Total Score: 0 10/21/19 19 4:00 PM EDT documented as of this encounter Care Teams Area Development Consultant Relationship Specialty Start Date End Date Charo Rich MD [address] [place] [address], [address] [place] [address] [email or web address] PCP - General Internal Medicine 05/13/18 02/01/20 Molly Walsh PA [address] [place] [address] PCP - General Unknown Provider Specialty 02/02/20 Charo Rich MD [address] [place] [address], [address] [place] [address] [email or web address] Insurance Assigned Provider 07/05/19 04/06/20 documented as of this encounter Additional Source Comments The information contained in this document represents components of the legal health record. It is not the complete legal health record.[facility]
== END 2024-10-24 10:38 | disposition home or self-care (01) ==
LOC: HO.XRAY 10:37
DX: M25.552 Pain in left hip (principal)
CPT/HCPCS: 73502

== ENCOUNTER → 2024-10-24 10:42 | Outpatient (BNV) | payer MEDICARE, SELFPAY | PROVIDERS: Visit Provider Radiology Diagnostic Radiology | DX: M46.1 Sacroiliitis, not elsewhere classified (principal) | CPT/HCPCS: 73502 ==

== ENCOUNTER 2024-11-10 08:52 | Outpatient (REF) | payer MEDICARE, SELFPAY ==
--- OUTSIDE RECORDS SUMMARY | 2024-02-10 07:00 | XMS_ITS ---
Author Organization Jed Berrios III, MD Address [address] [place] [address] Care Team Providers Care Allergy Nurse Name Role Phone Neris KUHN, Jackie Primary Care Provider Jed Alford Unavailable [phone] Allergies Allergen (clinical drug ingredient) Drug/Non Drug Allergy documented on EMR Reaction Allergy Type Onset Date Status No Known Drug Allergy Unknown Drug Allergy Active REASON FOR VISIT Right posterior groin pain, History of breast cancer, Hyperlipidemia, Cataract Medications Medication SIG (Take, Route, Frequency, Duration) Notes Start Date End Date Status Vitamin D3 0433205 UNIT/GM as directed Active Timolol Maleate Acti ve Omeprazole 10 MG 1 capsule Orally Onc e a day Active Social History Tobacco Use: Social History Observation Description Date Details (start date - stop date) Never Smoker NA - NA Tobacco Use/Smoking Question Answer Notes Patient is a nonsmoker Additional Findings: Tobacco Non-User Aggressive non-smoker Alcohol Screen Question Answer Notes Did you have a drink contain ing alcohol in the past year? Yes How often did you have a dri nk containing alcohol in the past year? 4 or more times a week (4 points) How many drinks did you have on a typical day when you were drinking in the past year? 1 or 2 drinks (0 point) How often did you have 6 or more drinks on one occasion in the past year? Never (0 point) Points 4 Interpretation Positive Vital Signs Temperature 97.0 degrees Fahrenheit 02/10/20 24 Blood pressure systolic 138 mm Hg 02/10/20 24 Blood pressure diastolic 68 mm Hg 024 Heart Rate 51 /min 02/10/2024 Height 66 in 02/10/2024 Weight 146 lbs 02/10/2024 BMI 23.56 kg/m2 02/10/2024 Encounters Encounter Location Date Provider Diagnosis Jed Berrios III, MD [address] [place] [address] [place] [address] 02/10/2024 Jed Berrios Tendinitis M77.9 ; Multilevel degenerative disc disease M53.9 ; Breast cancer, stage 1 C50.919 and Cataract H26.9 Assessments Encounter Date Diagnosis (ICD Code) Assessment Notes Treat ment Notes Treatment Clinical Notes 02/10/2024 Tendinitis (ICD-10 - M77.9) She is very physically active offered walking 10 miles. Her examination today was consistent with tendinitis or bursitis at the right ischial tuberosity. She was advised to rest and use heat and ibuprofen. She was advised to use a cushion on hard chairs. 02/10/2024 Multilevel degenerative disc disease (ICD-10 - M53.9) She has occasional mild arthritic complaints. No change in her physical examination was noted today. 02/10/2024 Breast cancer, stage 1 (ICD-10 - C50.919) There was no sign of recurrent disease or a new primary. The breasts were not examined at the patient's request. 02/10/2024 Cataract (ICD-10 - H26.9) She reports that she had successful cataract surgery and is pleased with her current vision. Plan Of Treatment Medication Medication Name Sig Start Date Stop Date Notes Vitamin D3 0309323 UNIT/GM as directed Timolol Maleate Omeprazole 10 MG 1 capsule Orally Once a day Next Appt Details Follow Up: In six months or whenever needed, Reason: Regular check-up Provider Name:Jed Berrios, 02/12/2025 11:00:00 AM, [address] [place] [address] [address], [place], [address], Progress Notes * Carlita NIEVESDOB:[birth year] (73 yo F)Acc No.[id number]:02/10/2024 Progress Notes Patient: Carlita LOWE Provider: Tessie Berrios MD :1950 A ge:73 Y S ex:Female Date:02/10/2024 Address:[address] [id number] Pcp:Jackie Cordon MD Subjective: * Chief Complaints: * R ight posterior groin painHistory of breast cancerHyperlipidemiaCataract * HPI: C OVID-19 Screening: Questions H ave you experienced fever, chills, [...] COVID-19 in the past? N o * : The patient, a 73-year-old female, presented with a complaint of pain in her right groin area, which she has been experiencing for the past few weeks. The pain is described as an ache, not sharp, and is located in the back of the groin. The pain has been progressively getting worse, especially when she sits down. The patient also mentioned that she has been walking about 15 miles a week. She had a genealogical exam scheduled previously but suspects that the pain could be radiating from her hip. She had a colonoscopy in January 2023 and a bone scan in September, both of which showed no significant findings. She also had a PET scan in January 2022, which showed a spot, but subsequent colonoscopy did not find anything. The patient also reported having cataract surgery in both eyes and Lasik surgery in the left eye due to continued loss of far vision. She also mentioned that her hearing is slightly declining, but not to a problematic extent. * ROS: G eneral/Constitutional: Admits p ain, P ain lower medial right buttock walking or rest. C hills d enies. F atigue a dmits. F ever d enies. E [...] have been noted. G enitourinary: Frequent urination a t night. M usculoskeletal: Muscle aches M edial right buttock. P ainful joints?denies. S ciatica d enies. W eakness d enies. S kin: Itching d enies. R manjula d enies. S kin lesion(s)?denies. N eurologic: Difficulty speaking d enies. D izziness d enies.?Headache d enies. L ow back pain d enies. P sychiatric: Depressed mood d enies. * Medical History: * Surgical History: s monique surgery for disc disease 3 retinal procedures 08/2009 right lumpectomy lasik left eye Cataract surgery Lasik surgery * Hospitalization/Major Diagno stic Procedure: N o history * Family History: F ather: , unknown causes. M other: , breast cancer, diagnosed with Cancer. S iblings: alive, obesity, diagnosed with HTN, DM. 1 brother(s) , 2 sister(s) . . Her mother of inflammatory breast cancer. Brother is healthy. * Social History: T obacco Use: T obacco Use/Smoking P atient is a n onsmoker A dditional Findings: Tobacco Non-User A ggressive non-smoker D rugs/Alcohol: D rugs H ave you used drugs other than those for medical reasons in the past 12 months? N o Alcohol Screen D id you have a drink containing alcohol in the past year? Y es H ow often did you have a drink containing alcohol in the past year? 4 or more times a week (4 points) H ow many drinks did you have on a typical day when you were drinking in the past year? 1 or 2 drinks (0 point) H ow often did you have 6 or more drinks on one occasion in the past year? N ever (0 point) P oints 4 I nterpretation P ositive M iscellaneous: M arital status: . 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 S he was born in [facility]. 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 She was born in [place], [place]. {'Walking': '15 miles a week', 'Dental Health': 'Had a tooth implant', 'Eye Health': 'Had cataract surgery in both eyes and Lasik surgery in the left eye', 'Hearing Health': 'Slight decline noted'}. * Medications: U nknownTimolol Maleate Omeprazole 10 MG Capsule Delayed Release 1 capsule Orally Once a day Vitamin D3 7232010 UNIT/GM Liquid as directed Medication List reviewed and reconciled with the patientUnknown Timolol Maleate Unknown Omeprazole 10 MG Capsule Delayed Release 1 capsule Orally Once a day Unknown Vitamin D3 0667761 UNIT/GM Liquid as directed Medication List reviewed and reconciled with the patient * Allergies: N o Known Drug Allergyno[Allergies Verified] Objective: * Vitals: H t: 66, Wt:146, BMI:23.56, BP:138/68, HR:51, Temp:97.0, Wt-k.22. * Examination: G eneral Examination: GENERAL APPEARANCE: p leasant, well nourished, well developed, in no acute distress, calm and relaxed, woman. HEAD: a traumatic, normocephalic. EYES: e [...] LUNGS: c lear to auscultation . BREASTS: S he declined this part of the examination. ABDOMEN: b owel sounds normal, no ascites, no organomegaly, no mass. RECTAL EXAM: n ot examined. MUSCULOSKELETAL: e xtremities unremarkable, no clubbing, cyanosis or edema, Mild decreased range of motion lumbar spine, but pain is reproduced precisely by pressure on the right ischial tuberosity. PERIPHERAL PULSES: n ormal. NEUROLOGIC: a lert and oriented, cranial nerves 2-12 grossly intact, deep tendon reflexes 2+ symmetrical, motor strength normal upper and lower extremities, sensory exam intact. PSYCH: a lert, oriented. Assessment: * Assessment: 1. T endinitis - M77.9 (Primary) N otes :She is very physically active offered walking 10 miles. Her examination today was consistent with tendinitis or bursitis at the right ischial tuberosity. She was advised to rest and use heat and ibuprofen. She was advised to use a cushion on hard chairs. 2 . M ultilevel degenerative disc disease - M53.9 N otes :She has occasional mild arthritic complaints. No change in her physical examination was noted today. 3 . B reast cancer, stage 1 - C50.919 N otes :There was no sign of recurrent disease or a new primary. The breasts were not examined at the patient's request. 4 . C ataract - H26.9 N otes :She reports that she had successful cataract surgery and is pleased with her current vision. Plan: * Treatment: * Procedure Codes: * Follow Up: I n six months or whenever needed (Reason: Regular check-up) * Images: * Sign off status: Completed true * Provider: Tessie Berrios MD Date: 1 04/11/2023 Generated for Karo bill/Estela/Abbieitting on: 0 11/10/2024 09:11 AM EDT History and Physical Notes * HPI (History of Present Illness) Category Sub-Category Detail Notes COVID-19 Screening Questions Have you had any new onset fever, chills, cough, congestion, sore throat, shortness of breath, muscle aches?: No Have you been exposed to the virus withi n the last 10 days?: No Have you travelled internationally in last 10 days?: No Have you been exposed to COVID-19 in the past?: No Examination Category Sub-Category Detail Notes General Examination GENERAL APPEARANCE: pleasant , well nourished, well developed, in no acute distress, calm and relaxed, woman HEAD: atraumatic, normocep halic EYES: eomi, [...] lesion s, anicteric PERIPHERAL PULSES: normal BREASTS: She declined this pa rt of the examination MUSCULOSKELETAL: extremities unremark able, no clubbing, cyanosis or edema, Mild decreased range of motion lumbar spine, but pain is reproduced precisely by pressure on the right ischial tuberosity LYMPH NODES: no enlarged lymph no sánchez,spleen normal RECTAL EXAM: not examined PSYCH: alert, oriented ORAL CAVITY: normal, unremarkable
[2024-11-10 09:01] LABS: MANUAL DIFF FLAG NO
--- OUTSIDE RECORDS SUMMARY | 2024-11-10 09:11 | XMS_ITS | Encounter Summary ---
Author Organization [facility] Address [address] [place] [address] Phone Care Team Providers Care Underwater Welder Name Role Phone Hilario Charo Lr MD Primary Care Provider [phone] Hilario Charo Lr MD Unavailable [phone] Molly Walsh Primary Care Provider Lori Kathleen Primary Care Provide r Encounter Details Date Type Department Care Team (Latest Contact Info) Description 01/27/2020 Transcribe Orders Virtual Department [address] [place] [address] Michael Greenberg MD [address] [place] [id number] [email or web address] Encounter for preprocedure screening laboratory testing for [...] as of this encounter Plan of Treatment Not on file documented as of this encounter Results * COVID-19 PCR Order (01/30/2020 10:45 AM EST) Specimen Source 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 NO [facility] Other 01/30/2020 10:4 5 AM EST 01/30/2020 11:23 AM EST us Michael Greenberg MD BODY FLUIDS AND STOOLS ORDERABLE S Edited Result - Final [facility] [address] [place] [address] documented in this encounter Visit Diagnoses Diagnosis Encounter for preprocedure screening laboratory testing for COVID-19- Primary documented in this encounter Additional Health Concerns Assessment Noted Time PHQ-2 Depression Total Score: 0 10/21/19 4:00 PM EDT documented as of this encounter Care Teams Underwater Welder Relationship Specialty Start Date End Date Charo Rich MD [address] [place] [phone] PCP - General Internal Medicine 05/13/18 02/01/20 Molly Walsh PA [address] [place] [address] PCP - General Unknown Provider Specialty 02/02/20 11/05/24 Lori Kathleen PA [address] [place] [address] [place] [address] PCP - General Physician Campus Executive Director 11/06/24 Charo Rich MD [address] [place] [phone] Insurance Assigned Provider 07/05/19 04/06/20 documented as of this encounter Additional Source Comments The information contained in this document represents components of the legal health record. It is not the complete legal health record.[facility]
[2024-11-10 09:42] LABS: Hematocrit 40.2 % (37.0-47.0); Hemoglobin 13.6 g/dl (12.0-16.0); Imm Gran Abs Auto 0.03 X10*3/uL (0.00-0.03); Imm Gran Pct Auto 0.5 % (0.0-0.4); Lymphocytes Absolute Auto 1.4 X10*3/uL (1.2-4.9); Mean Corpuscular HGB Conc 33.8 g/dl (31.0-35.0); Mean Corpuscular Hemoglobin 32.2 pg (27.0-33.0); Mean Corpuscular Volume 95.0 fL (80.0-98.0); NRBC Abs Auto 0.000 X10*3/uL (0.0-0.012); NRBC Pct Auto 0.0 /100WBC (0.0-0.2); Platelet Count 291 X10*3/uL (160-400); Red Blood Count 4.23 X10*6/uL (4.20-5.50); White Blood Count 6.5 X10*3/uL (4.8-10.8)
[2024-11-10 09:51] LABS: Hemoglobin A1C 133.3511 umol/L; Total Hemoglobin (HGBA1C) 3613.0856 umol/L
[2024-11-10 10:11] LABS: Alanine Aminotransferase 20 U/L (0-31); Albumin Level 4.3 g/dL (3.5-5.0); Alkaline Phosphatase 68 U/L (39-117); Anion Gap 10 (12-20); Aspartate Amino Transferase 24 U/L (5-31); Blood Urea Nitrogen 12 mg/dL (9-16); Calcium 9.4 mg/dL (8.4-10.2); Carbon Dioxide 28 mmol/L (22-29); Chloride 104 mmol/L (96-108); Cholesterol 220 mg/dL (<200); Estimated Glomerular Filt Rate > 60; HDL Cholesterol 63 mg/dL (>40); Potassium 4.1 mmol/L (3.3-5.1); Sodium 138 mmol/L (135-145); Total Protein 6.9 g/dL (6.5-8.0); Triglycerides 64 mg/dL (<150)
[2024-11-10 10:38] LABS: Appearance Urine Clear; Glucose Urine UA Negative (Negative); PH 7.5 (5.0-9.0); Specific Gravity - Urine <= 1.005 (1.005-1.025); UMIC TRIGGER UACC YES
[2024-11-10 11:36] LABS: UACC Culture Trigger YES
== END 2024-11-10 08:53 | disposition home or self-care (01) ==
LOC: HO.LAB 08:52
DX: Z00.00 Encounter for general adult medical examination without abnormal findings (principal); Z13.6 Encounter for screening for cardiovascular disorders; Z13.220 Encounter for screening for lipoid disorders; Z78.0 Asymptomatic menopausal state; Z83.3 Family history of diabetes mellitus; K21.9 Gastro-esophageal reflux disease without esophagitis
CPT/HCPCS: 36415; 80053; 80061; 81001; 83036; 85025; 87086